=== PATIENT | male | born 1990 | race Caucasian/White ===

== ENCOUNTER 2023-05-07 11:47 | Outpatient (REF) | payer MEDICARE, MEDICAID, SELFPAY ==
[2023-05-12 16:33] LABS: C. trachomatis RNA TMA NOT DETECTED (NOT DETECTED); N. gonorrhoeae RNA TMA NOT DETECTED (NOT DETECTED)
== END 2023-05-07 11:48 | disposition home or self-care (01) ==
LOC: HO.LNP 11:47
PROVIDERS: Visit Provider Registered Nurse
DX: N48.1 Balanitis (principal)
CPT/HCPCS: 87481; 87491; 87591

== ENCOUNTER 2023-06-20 08:56 | Outpatient (AMB) | payer MEDICARE, MEDICAID, SELFPAY ==
--- NOTE | 2023-06-20 09:20 | A.OFFVIS_ITS ---
Intake Intake Visit Reasons: Balanitis Intake Note: New Patient presents for initial visit Balanitis Urology Medications: none Blood Thinner: none Bearing Ring Assembler Required: No Accompanied by: Self / Same As Patient Allergies No Known Allergies [No Known Allergies*] Allergy (Unverified 06/20/23 10:07) Medication List - Last Reconciled 06/20/23 by NASIMA Deras clotrimazole-betamethasone 1-0.05 % 1 appl topical BID 4 weeks empagliflozin (Jardiance) 10 mg PO DAILY metoprolol succinate ER 100 mg PO DAILY sacubitril-valsartan 24-26 mg (Entresto) 1 tab PO BID sacubitril-valsartan 49-51 mg (Entresto) 1 tab PO BID spironolactone 12.5 mg PO DAILY vitamin B complex 1 cap PO QAM HPI HPI Comments History of Present Illness Details Cy is a pleasant 33-year-old male patient of . He has a past medical history of alcohol abuse, heart failure, and hypertension. He presents to the office today as a new patient for balanitis. In discussion with the patient today he reports noting over the last 1-2 months having issues with the foreskin of his penis. In assessment of the patient today penile glans appears inflamed and erythematous. No drainage, open areas, and or foul smell noted. Discussed at length potential causes for balanitis. Patient otherwise denies any bothersome urinary issues at this time. He denies urinary urgency, urinary frequency, incontinence, nocturia, hematuria, dysuria, foul smelling urine, changes to urinary stream, flank pain, fever, and or chills. He is happy with his current voiding parameters. In office urinalysis results reviewed with the patient today. Patient discusses at length ongoing issues with house arrest. He becomes tearful discussing his girlfriend who has recently broke up with him due to this urological issue he is experiencing. He otherwise offers no other issues or concerns at this time. [facility] Medical History Low HDL (under 40) Tobacco abuse disorder Alcohol abuse Class 1 obesity Nonischemic cardiomyopathy Heart failure with reduced ejection fraction Review of Systems Const Reports as per HPI Eyes Reports no additional complaints ENT Reports no additional complaints Card Reports as per HPI Resp Reports no additional complaints GI Reports no additional complaints Reports as per HPI Musc Reports no additional complaints Neuro Reports no additional complaints Psych Reports no additional complaints Endo Reports no additional complaints Reinaldo/Lymph Reports no additional complaints Aller/Immun Reports no additional complaints Physical Exam Const General: cooperative, healthy appearing, comfortable, no acute distress, well developed, alert and awake Nutritional Appearance: overweight Orientation/consciousness: patient oriented x3 Limitations: no limitations HEENT Head: Yes normal to inspection, Yes normocephalic and Yes atraumatic Ears: hearing grossly normal bilaterally Eyes General: appearance normal, both eyes and all related structures Neck Neck: Yes normal visual inspection and Yes trachea midline Chest Chest palpation & inspection: normal inspection of the chest Resp Effort & Inspection: normal respiratory effort and able to speak in complete sen tences Cardio Rate: regular rate GI Inspection: Yes normal to inspection General: Yes no CVA tenderness Penis: uncircumcised and erythematous (penile gland; foreskin is retractable ) Meatus: meatus normal Scrotum: scrotum normal Testes: Testes normal Back/Spine/Pelvis Back: no CVA tenderness Skin General skin exam: no rashes or lesions noted Neuro General: patient oriented x3 Extrem General: Yes normal to inspection Psych Appearance: grossly normal and well kempt Mental Status: mental status grossly normal Speech and movement: Normal speech and movement present and Clear speech present Affect: normal affect Attitude: cooperative Thought process: Normal thought process present Thought content: Normal thought content present Insight: Fair insight present (Psych) Judgement: Fair judgement present (Psych) Results AMB Urinalysis, Automated UA Leukoctes 0 Aditya/uL Last Edit by YANA Alberto on 06/20/23 09:31 UA Nitrite Negative Last Edit by YANA Alberto on 06/20/23 09:31 UA Urobilinogen 0.2 mg/dL Last Edit by YANA Alberto on 06/20/23 09:3 1 UA Protein 0 mg/dL Last Edit by YANA Alberto on 06/20/23 09:31 UA pH 6.0 Last Edit by YANA Alberto on 06/20/23 09:31 UA Blood 0 Tevin/uL Last Edit by YANA Alberto on 06/20/23 09:31 UA Specific [place] 1.25 Last Edit by YANA Alberto on 06/20/23 09:3 1 UA Ketone Negative Last Edit by YANA Alberto on 06/20/23 09:31 UA Bilirubin 0 mg/dL Last Edit by YANA Alberto on 06/20/23 09:31 UA Glucose 1000 mg/dL Last Edit by YANA Alberto on 06/20/23 09:31 3+ Jonathon Estes 06/20/23 09:31 Results Reviewed Results Reviewed: Laboratory Last Values Urine pH (Auto) 6.0 06/20/23 09:25 Specific [place] (Auto) 1.25 06/20/23 09:25 Urine Protein (Auto) 0 mg/dL 06/20/23 09:25 Glucose (UA)(Auto) 1000 mg/dL 06/20/23 09:25 Urine Ketones (Auto) Negative 06/20/23 09:25 Urine Blood (Auto) 0 Tevin/uL 06/20/23 09:25 Urine Nitrite (Auto) Negative 06/20/23 09:25 Urine Bilirubin (Auto) 0 mg/dL 06/20/23 09:25 Urine Urobilinogen (Auto) 0.2 mg/dL 06/20/23 09:25 Leukocyte Esterase (Auto) 0 Aditya/uL 06/20/23 09:25 Assessment & Plan Assessment & Plan (1) Balanitis: Code(s): N48.1 - Balanitis Plan In office urinalysis results reviewed with the patient today. Discussed at length potential causes for balanitis. Patient denies any bothersome urinary issues at this time. Start clotrimazole-betamethasone as discussed and prescribed. Patient reports be happy with current voiding parameters. Follow-up in 1 month; or sooner with any issues, concerns, and or questions. Orders: Orders AMB Urinalysis Automated 06/20/23 N39.0 - Urinary tract infection, site not specified Medications: New clotrimazole-betamethasone 1-0.05 % Apply thin coat 2 times per day 1 appl topical BID 45 grams 0RF 4 weeks N48.1 - Balanitis Patient Instructions: The patient had an opportunity to ask questions regarding the treatment plan. All questions were answered. Physical exam, labs, and imaging were discussed and reviewed in detail. As well as risks, benefits, and discussion of treatment choices. No major barriers to understanding were identified. The patient expressed understanding and agreement with the above treatment plan. The patient was made aware they should contact our office by phone for worsening of their current condition, the appearance of new symptoms, or with any questions or concerns. Compliance is encouraged with any medications and follow up testing that is ordered. It is a privilege to be allowed the opportunity to participate in? your urological care.? Again, if you have any questions or concerns If you have any questions or concerns please do not hesitate to contact me. The office is [phone]. This note is constructed using voice recognition software. While every effort has been made to ensure accuracy stone layout marker errors may have been included. Yours sincerely, NASIMA Deras Coding Level of Care Code New Pt Level 4 (95289) Diagnoses Balanitis N48.1
== END 2023-06-20 10:16 | disposition home or self-care (01) ==
PROVIDERS: PCP Registered Nurse; Visit Provider Nurse Practitioner Family
DX: N48.1 Balanitis (principal)
CPT/HCPCS: 99204

== ENCOUNTER → 2023-06-20 08:56 | Outpatient (BNVA) | payer MEDICARE, MEDICAID, SELFPAY | PROVIDERS: PCP Registered Nurse; Visit Provider Nurse Practitioner Family | DX: N48.1 Balanitis (principal) | CPT/HCPCS: 81003; 99202 ==

== ENCOUNTER 2023-07-23 09:51 | Outpatient (AMB) | payer MEDICARE, MEDICAID, SELFPAY ==
--- NOTE | 2023-07-23 10:11 | MHC.OFFVIS ---
Intake Intake Visit Reasons: 1m follow up Intake Note: Patient presents for follow up visit Balanitis Urology Medications: clotrimazole-betamethasone Blood Thinner: none Aircraft Detail Draftsperson Required: No Accompanied by: Self / Same As Patient Allergies No Known Allergies [No Known Allergies*] Allergy (Unverified 07/23/23 10:45) Medication List - Last Reconciled 07/23/23 by CAROLYN Deras-VITALY clotrimazole-betamethasone 1-0.05 % 1 appl topical BID 4 weeks empagliflozin (Jardiance) 10 mg PO DAILY metoprolol succinate ER 100 mg PO DAILY sacubitril-valsartan 24-26 mg (Entresto) 1 tab PO BID sacubitril-valsartan 49-51 mg (Entresto) 1 tab PO BID spironolactone 12.5 mg PO DAILY vitamin B complex 1 cap PO QAM HPI HPI Comments History of Present Illness Details Cy is a pleasant 33-year-old male patient of Dr. Ramon. He has a past medical history of alcohol abuse, heart failure, and hypertension. He presents to the office today for follow-up. Of note, patient was seen approximately 1 month ago as a new patient for balanitis at which time he was prescribed clotrimazole-betamethasone. In discussion with the patient today he reports to be doing and feeling well. He reports significant improvement in symptoms he had been experiencing. He reports he has now been able to retract the foreskin of his penis and feels inflammation and irritation has since subsided. In assessment of the patient today foreskin of the penis was retractable and no abnormalities noted. No inflammation, redness, drainage, or foul-smelling odor. Discussed at length potential causes for balanitis. Patient otherwise denies any bothersome urinary issues at this time. He denies urinary urgency, urinary frequency, incontinence, nocturia, hematuria, dysuria, foul smelling urine, changes to urinary stream, flank pain, fever, and or chills. He is happy with his current voiding parameters. In office urinalysis results reviewed with the patient today. He discusses his upcoming motion for court in attempt to be able to do more out in the community. He otherwise offers no other issues or concerns at this time. [facility] Medical History Low HDL (under 40) Tobacco abuse disorder Alcohol abuse Class 1 obesity Nonischemic cardiomyopathy Heart failure with reduced ejection fraction Review of Systems Const Reports as per HPI Eyes Reports no additional complaints ENT Reports no additional complaints Card Reports as per HPI Resp Reports no additional complaints GI Reports no additional complaints Reports as per HPI Musc Reports no additional complaints Neuro Reports no additional complaints Psych Reports no additional complaints Endo Reports no additional complaints Reinaldo/Lymph Reports no additional complaints Aller/Immun Reports no additional complaints Physical Exam Const General: cooperative, healthy appearing, comfortable, no acute distress, well developed, alert and awake Nutritional Appearance: overweight Orientation/consciousness: patient oriented x3 Limitations: no limitations HEENT Head: Yes normal to inspection, Yes normocephalic and Yes atraumatic Ears: hearing grossly normal bilaterally Eyes General: appearance normal, both eyes and all related structures Neck Neck: Yes normal visual inspection and Yes trachea midline Chest Chest palpation & inspection: normal inspection of the chest Resp Effort & Inspection: normal respiratory effort and able to speak in complete sentences Cardio Rate: regular rate GI Inspection: Yes normal to inspection General: Yes no CVA tenderness Penis: normal penis and uncircumcised Meatus: meatus normal Scrotum: scrotum normal Testes: Testes normal Back/Spine/Pelvis Back: no CVA tenderness Skin General skin exam: no rashes or lesions noted Neuro General: patient oriented x3 Extrem General: Yes normal to inspection Psych Appearance: grossly normal and well kempt Mental Status: mental status grossly normal Speech and movement: Normal speech and movement present and Clear speech present Affect: normal affect Attitude: cooperative Thought process: Normal thought process present Thought content: Normal thought content present Insight: Fair insight present (Psych) Judgement: Fair judgement present (Psych) Results AMB Urinalysis, Automated UA Leukoctes 0 Aditya/uL Last Edit by Pedro Dickson on 07/23/23 10:28 UA Nitrite Negative Last Edit by Pedro Dickson on 07/23/23 10:28 UA Urobilinogen 0.2 mg/dL Last Edit by Pedro Dickson on 07/23/23 10:28 UA Protein 15 mg/dL Last Edit by Pedro Dickson on 07/23/23 10:28 UA pH 6.0 Last Edit by Pedro Dickson on 07/23/23 10:28 UA Blood 0 Tevin/uL Last Edit by Pedro Dickson on 07/23/23 10:28 UA Specific [place] 1.025 Last Edit by Pedro Dickson on 07/23/23 10:28 UA Ketone Negative Last Edit by Pedro Dickson on 07/23/23 10:28 UA Bilirubin 0 mg/dL Last Edit by Pedro Dickson on 07/23/23 10:28 UA Glucose 500 mg/dL Last Edit by Pedro Dickson on 07/23/23 10:28 Results Reviewed Results Reviewed: Laboratory Last Values Urine pH (Auto) 6.0 07/23/23 10:17 Specific [place] (Auto) 1.025 07/23/23 10:17 Urine Protein (Auto) 15 mg/dL 07/23/23 10:17 Glucose (UA)(Auto) 500 mg/dL 07/23/23 10:17 Urine Ketones (Auto) Negative 07/23/23 10:17 Urine Blood (Auto) 0 Tevin/uL 07/23/23 10:17 Urine Nitrite (Auto) Negative 07/23/23 10:17 Urine Bilirubin (Auto) 0 mg/dL 07/23/23 10:17 Urine Urobilinogen (Auto) 0.2 mg/dL 07/23/23 10:17 Leukocyte Esterase (Auto) 0 Aditya/uL 07/23/23 10:17 Assessment & Plan Assessment & Plan (1) Balanitis: Code(s): N48.1 - Balanitis Plan In office urinalysis results reviewed with the patient today; as noted above. Significant improvement in balanitis; no erythema or swelling noted. Foreskin is easily retractable. Patient denies any bothersome urinary issues or concerns at this time. He is happy with current voiding parameters. Reassurance provided. Follow-up as needed. Orders: Orders AMB Urinalysis Automated Today Z13.9 - Encounter for screening, unspecified Patient Instructions: The patient had an opportunity to ask questions regarding the treatment plan. All questions were answered. Physical exam, labs, and imaging were discussed and reviewed in detail. As well as risks, benefits, and discussion of treatment choices. No major barriers to understanding were identified. The patient expressed understanding and agreement with the above treatment plan. The patient was made aware they should contact our office by phone for worsening of their current condition, the appearance of new symptoms, or with any questions or concerns. Compliance is encouraged with any medications and follow up testing that is ordered. It is a privilege to be allowed the opportunity to participate in? your urological care.? Again, if you have any questions or concerns If you have any questions or concerns please do not hesitate to contact me. The office is [phone]. This note is constructed using voice recognition software. While every effort has been made to ensure accuracy procurement internship errors may have been included. Yours sincerely, NASIMA Deras Coding Level of Care Code Est Pt Level 3 (56119) Diagnoses Balanitis N48.1
== END 2023-07-23 10:44 | disposition home or self-care (01) ==
PROVIDERS: PCP Registered Nurse; Visit Provider Nurse Practitioner Family
DX: Z13.9 Encounter for screening, unspecified (principal); N48.1 Balanitis
CPT/HCPCS: 99213

== ENCOUNTER → 2023-07-23 09:51 | Outpatient (BNVA) | payer MEDICARE, MEDICAID, SELFPAY | PROVIDERS: PCP Registered Nurse; Visit Provider Nurse Practitioner Family | DX: N48.1 Balanitis (principal) | CPT/HCPCS: 81003; 99212 ==

== ENCOUNTER 2024-02-02 10:43 | Inpatient (IN) | payer MEDICARE, MEDICAID, SELFPAY ==
--- NOTE | ~2024-02-02 | XR_ITS ---
EXAMINATION: XR WRIST, LEFT CLINICAL INFORMATION: Left wrist abscess with question of foreign body COMPARISON: None available. TECHNIQUE: PA, lateral, and oblique views of the left wrist. FINDINGS: An ovoid soft tissue mass measuring about 2.6 cm is seen on the ventral surface of the left wrist. The bones and soft tissues are otherwise normal. No radiopaque foreign body. No fracture. Alignment is anatomic with normal joint spaces. No erosions or abnormal soft tissue calcifications. XR/XR wrist LT min 3V IMPRESSION: Soft tissue mass without radiopaque foreign body.
[2024-02-02 10:48] VITALS: BP 140/87; PULSE 95; RESP 18; TEMP 37.4; O2SAT 98; BMI 33.9
--- NOTE | 2024-02-02 12:39 | ED_ITS ---
HPI - General Adult General Chief complaint: Skin/Abscess/Foreign Body Stated complaint: growth on l wrist Time Seen by Provider: 02/02/24 12:39 Source: patient Mode of arrival: ambulatory Limitations: no limitations History of Present Illness HPI narrative: Patient is a 34-year-old right hand dominant male presenting to the emergency department with complaint of abscess to left anterior wrist for 6 days. States he initially thought this was a bug bite as it was mildly pruritic and small. Reports that over the past few days the area has increased in size and began draining clear liquid. He denies fever/chills/body aches. Denies history of MRSA. Denies IV drug use. MD complaint: Abscess Onset (ago): day(s) Location: left and upper extremity Severity: moderate Quality: aching Pain Consistency: colicky Relieving factors: rest Exacerbating factors: movement Associated symptoms: denies other symptoms Treatments prior to arrival: none Related Data Home Medications ?Medication ?Instructions ?Recorded ?Confirmed metoprolol succinate 100 mg 100 mg PO DAILY 06/17/23 07/23/23 tablet,extended release 24 hr sacubitril 49 mg-valsartan 51 mg 1 tab PO BID 06/17/23 07/23/23 tablet (Entresto) spironolactone 25 mg tablet 12.5 mg PO DAILY 06/17/23 07/23/23 vitamin B complex 1 cap PO QAM 06/17/23 07/23/23 empagliflozin 10 mg tablet 10 mg PO DAILY 06/20/23 07/23/23 (Jardiance) sacubitril 24 mg-valsartan 26 mg 1 tab PO BID 06/20/23 07/23/23 tablet (Entresto) Previous Rx's ?Medication ?Instructions ?Recorded clotrimazole-betamethasone 1 1 appl topical BID 4 weeks #45 06/20/23 %-0.05 % topical cream grams Allergies Allergy/AdvReac Type Severity Reaction Status Date / Time No Known Allergies Allergy Verified 02/02/24 10:49 [No Known Allergies*] Review of Systems 2 Review of Systems: As per HPI. Yes all other systems are reviewed and are negative Constitutional: Constitutional: Reports as per HPI [facility], [facility] Past Medical History Medical History Low HDL (under 40) Tobacco abuse disorder Alcohol abuse Class 1 obesity Nonischemic cardiomyopathy Heart failure with reduced ejection fraction Social History Social History Alcohol intake: current Smoked in Last 30 Days: No Substance Use Type: Marijuana Advance Directives: No Advance Directives Information Provided: Yes Do you have a plan to hurt others: No Plan Physical Exam ED Vital Signs: Vital Signs - 24 hr 02/02/24 10:48 02/02/24 13:04 02/02/24 14:22 Temperature 99.4 F 97.8 F 99.4 F Pulse Rate 95 88 89 Respiratory Rate 18 20 20 Blood Pressure 140/87 H 143/99 H 142/92 H Pulse Oximetry 98 97 97 Oxygen Delivery Method Room Air Room Air Room Air BMI result Body Mass Index 33.9 Vital signs have been reviewed and appear to be correct. Blood pressure elevated. Heart rate normal. Respiratory rate normal. Temperature normal. Oxygen saturation normal. Const General: cooperative, healthy appearing and no acute distress Orientation/consciousness: oriented to person, oriented to place, oriented to time and patient oriented x3 Limitations: no limitations HENMT Head: Yes normocephalic and Yes atraumatic Ears: external ears normal General nose exam: Normal external nose present Face and sinus: Yes face symmetric Mouth: oropharynx normal and moist mucous membranes Throat: Yes uvula midline Eyes Pupils: Equal, round and reactive pupils present Neck Neck: Yes normal visual inspection and Yes supple Resp Effort & Inspection: normal respiratory effort and able to speak in complete sentences Auscultation: clear to auscultation bilaterally Cardio Rate: regular rate Rhythm: regular rhythm Heart sounds: S1 normal heart sound present and S2 normal heart sound present Skin General skin exam: elasticity normal and turgor normal Neuro General: oriented to person, oriented to place, oriented to time, patient oriented x3, moves all extremities, no focal motor deficits and CN's II-XI intact bilaterally Cranial nerves: Yes Equal, round and reactive pupils present Cognition (Neuro): normal cognition Extrem Other: General: Yes full ROM, Yes no pedal edema and Yes no calf tenderness Left upper extremity: wrist forearm distal anterior Details: abnormal to inspection Details: erythema (abscess 3cm diameter), tenderness Location: of the distal ulna, normal ROM, warmth Location: of the volar wrist and normal vascular exam Psych Mental Status: mental status grossly normal Affect: normal affect Thought process: Normal thought process present Medical Decision Making Medical Decision Making [facility] Narrative: Patient is a 34-year-old right hand dominant male presenting to the emergency department with complaint of abscess to left anterior wrist for 6 days. On exam patient is awake, A+Ox3, VS WNL, afebrile, normal neurological exam without focal deficits, physical exam findings as above. Given reported symptoms and physical exam findings, initial differential includes abscess, cellulitis. Do not suspect septic joint as patient has full ROM, is afebrile. No leukocytosis on labs. Case discussed with Thomas from [facility] who discussed case with Dr. Mustafa. They are requesting admission to medicine, hold antibiotics at this time, NPO after midnight and pt to go to OR tomorrow for I&D. Patient accepted for admission to medicine by Dr. Coats. Differential Diagnosis Differential Diagnoses: The differential diagnosis associated with the presentation includes as per [facility] Admission/Observation Consideration of admission/observation: Escalation of care including admission/observation considered Consult Healthcare Provider Management of the patient was discussed with: Hospitalist and Straddle Buggy Operator (Erick Davies, Dr. Mustafa, [facility]) Lab Data [facility] Lab Attestation statement: I reviewed the patient's lab results. As per [facility] 02/02/24 14:44 02/02/24 14:44 Labs: Lab Results 02/02/24 Range/Units 14:44 WBC 9.4 (4.8-10.8) X10*3/uL RBC 5.11 (4.60-5.80) X10*6/uL Hgb 15.4 (14.0-18.0) g/dl Hct 43.4 (42.0-52.0) % MCV 84.9 (80.0-98.0) fL MCH 30.1 (27.0-33.0) pg MCHC 35.5 (31.0-36.0) g/dl RDW 13.1 (11.0-16.0) % Plt Count 243 (160-400) X10*3/uL MPV 8.7 L (9.4-12.4) fL Sodium 140 (135-145) mmol/L Potassium 3.6 (3.3-5.1) mmol/L Chloride 107 (96-108) mmol/L Carbon Dioxide 23 (22-29) mmol/L Anion Gap 14 (12-20) BUN 9 (9-16) mg/dL Creatinine 0.78 (0.5-1.4) mg/dL Estim Creat Clear Calc 170.2 Estimated GFR > 60 Random Glucose 96 (60-115) mg/dL Calcium 9.6 (8.4-10.2) mg/dL External Record Review External record reviewed: Inpatient record, Office record and Outpatient record Prescription Management I considered prescription management with: Antibiotic Discharge Plan Discharge Prescriptions: No Action metoprolol succinate 100 mg tablet extended release 24 hr 100 mg PO DAILY spironolactone 25 mg tablet 12.5 mg PO DAILY vitamin B complex Capsule 1 cap PO QAM Entresto 49-51 mg tablet 1 tab PO BID Jardiance 10 mg tablet 10 mg PO DAILY Entresto 24-26 mg tablet 1 tab PO BID clotrimazole-betamethasone 1-0.05 % cream 1 appl topical BID 28 Days Qty: 45 0RF Rx Instructions: Apply thin coat 2 times per day Print Language: Setswana
[2024-02-02 13:04] VITALS: BP 143/99; PULSE 88; RESP 20; TEMP 36.6; O2SAT 97
[2024-02-02 14:22] VITALS: BP 142/92; PULSE 89; RESP 20; TEMP 37.4; O2SAT 97
[2024-02-02 14:56] LABS: Basophils Absolute Auto 0.1 X10*3/uL (0.0-0.2); Basophils Percent Auto 1.2 % (0-2); Eosinophils Percent Auto 0.4 % (0-4); Hematocrit 43.4 % (42.0-52.0); Hemoglobin 15.4 g/dl (14.0-18.0); Imm Gran Abs Auto 0.03 X10*3/uL (0.00-0.03); Imm Gran Pct Auto 0.3 % (0.0-0.4); Lymphocytes Percent Auto 64.6 % (20-40); MANUAL DIFF FLAG SCAN; Mean Corpuscular HGB Conc 35.5 g/dl (31.0-36.0); Mean Corpuscular Hemoglobin 30.1 pg (27.0-33.0); Mean Corpuscular Volume 84.9 fL (80.0-98.0); Mean Platelet Volume 8.7 fL (9.4-12.4); Monocytes Absolute Auto 0.6 X10*3/uL (0.1-1.2); Neutrophils Absolute Auto 2.6 x10*3/uL (2.0-8.3); Neutrophils Percent Auto 27.5 % (45-73); Platelet Count 243 X10*3/uL (160-400); Red Blood Count 5.11 X10*6/uL (4.60-5.80); Red Cell Distribution Width 13.1 % (11.0-16.0); SCAN SMEAR FLAG 1; White Blood Count 9.4 X10*3/uL (4.8-10.8)
[2024-02-02 14:58] LABS: Lymphocytes Absolute Auto 6.1 X10*3/uL (1.2-4.9)
[2024-02-02 15:10] LABS: Anion Gap 14 (12-20); Blood Urea Nitrogen 9 mg/dL (9-16); Calcium 9.6 mg/dL (8.4-10.2); Carbon Dioxide 23 mmol/L (22-29); Chloride 107 mmol/L (96-108); Creatinine Clr Calc Pharmacy 170.2; Estimated Glomerular Filt Rate > 60; Glucose Random 96 mg/dL (60-115); Potassium 3.6 mmol/L (3.3-5.1); Sodium 140 mmol/L (135-145)
[2024-02-02] MEDS: oxyCODONE HCl Immed Release 5 MG TABLET 10 MG PO ×2 (15:13→19:16)
--- NOTE | 2024-02-02 15:42 | PM.IMHP ---
History of Present Illness Date of Service: 02/02/24 Chief Complaint: Abscess left wrist Patient is a 34-year-old right hand dominant male presenting to the emergency department with complaint of abscess to left anterior wrist for 6 days. States he initially thought this was a bug bite as it was mildly pruritic and small. Reports that over the past few days the area has increased in size and began draining clear liquid. He denies fever/chills/body aches. Denies history of MRSA. Denies IV drug use. ER discussed with ortho; requested medical admission IV antibiotics and likely I&D in a.m. Review of Systems Review of Systems: Denies chest pain Denies shortness of breath Denies nausea vomiting diarrhea Denies fever chills PMFSH Medical History (Updated 02/02/24 @ 15:45 by Jose Coats DO) Low HDL (under 40) Tobacco abuse disorder Alcohol abuse Class 1 obesity Nonischemic cardiomyopathy Heart failure with reduced ejection fraction Social History Alcohol intake: current Smoked in Last 30 Days: No Substance Use Type: Marijuana Advance Directives: No Advance Directives Information Provided: Yes Do you have a plan to hurt others: No Plan Meds Allergies Allergy/AdvReac Type Severity Reaction Status Date / Time No Known Allergies Allergy Verified 02/02/24 10:49 [No Known Allergies*] Active Medications: Current Medications Enoxaparin Sodium (Enoxaparin Sodium 40 Mg/0.4 Ml Syringe) 40 mg SUBCUT Q24H TONA Vancomycin HCl (Vancomycin/Ns) 2,000 mg in 500 mls @ 250 mls/hr IV ONCE ONE Stop: 02/02/24 17:03 Piperacillin Sod/Tazobactam (Sod 4.5 gm/ Sodium Chloride) 100 mls @ 200 mls/hr IV Q6H T[facility] Morphine Sulfate (Morphine Sulfate 4 Mg/Ml Cartridge) 4 mg IVPUSH Q4H PRN; Protocol PRN Reason: Pain, Moderate(Pain Scale 4-6) Oxycodone HCl (Oxycodone Hcl Immed Release 5 Mg Tablet) 10 mg PO Q4H PRN PRN Reason: Pain, Moderate(Pain Scale 4-6) Last Admin: 02/02/24 15:13 Dose: 10 mg Pharmacy Consult (Consult Rx Vancomycin Dosing) 1 each MISCELLANE DAILY PRN PRN Reason: Consult order Sodium Chloride (0.9 % Sodium Chloride Flush 3 Ml Syringe) 3 ml IVFLUSH QSHIFT [facility] Home Medications ?Medication ?Instructions ?Recorded ?Confirmed ?Last Taken ?Type metoprolol succinate 100 mg 100 mg PO DAILY 06/17/23 07/23/23 Unknown History tablet,extended release 24 hr sacubitril 49 mg-valsartan 51 mg 1 tab PO BID 06/17/23 07/23/23 Unknown History tablet (Entresto) spironolactone 25 mg tablet 12.5 mg PO DAILY 06/17/23 07/23/23 Unknown History vitamin B complex 1 cap PO QAM 06/17/23 07/23/23 Unknown History dapagliflozin propanediol 10 mg 10 mg PO DAILY 02/02/24 02/02/24 Unknown History tablet (Farxiga) metoprolol succinate 200 mg 200 mg PO DAILY 02/02/24 02/02/24 Unknown History tablet,extended release 24 hr sacubitril 97 mg-valsartan 103 mg 1 tab PO BID 02/02/24 02/02/24 Unknown History tablet (Entresto) Physical Exam Vital Signs and Narrative: Vital Signs: Last Vital Signs Temp 99.4 F 02/02/24 14:22 Pulse 89 02/02/24 14:22 Resp 20 02/02/24 14:22 BP 142/92 H 02/02/24 14:22 Pulse Ox 97 02/02/24 14:22 O2 Del Method Room Air 02/02/24 14:22 BMI result Body Mass Index 33.9 Const: Other: Awake alert oriented x3 no acute distress Resp: Other: Clear to auscultation bilaterally no rales rhonchi or wheezes Cardio: Other: No S4; positive S1-S2; no S3 murmurs rubs or gallops GI: Other: Soft nontender nondistended normoactive bowel sounds Extrem: Other: Left wrist with proximally 3-4 cm raised firm mass Results Labs 02/02/24 14:44 02/02/24 14:44 Labs: Laboratory Results - last 24 hr 02/02/24 14:44 MCV 84.9 MCH 30.1 MCHC 35.5 RDW 13.1 Plt Count 243 MPV 8.7 L Anion Gap 14 Estim Creat Clear Calc 170.2 Estimated GFR > 60 Random Glucose 96 Calcium 9.6 Assessment and Plan (1) Abscess of wrist: Status: Acute (2) Nonischemic cardiomyopathy: Status: Acute (3) Heart failure with reduced ejection fraction: Status: Acute Plan 34-year-old male with abscess to left wrist that has worsened over the last several days with clear drainage. Denies fever chills 1.Left wrist abscess -vancomycin/Zosyn (1) -blood cultures x2 drawn -orthopedic consult 2.Nonischemic cardiomyopathy/heart failure with reduced ejection fraction -stable and well compensated -continue outpatient therapies Full code Suex Requires at least 2 midnights of inpatient stay for IV antibiotics to treat abscess of left wrist and surgical consult for possible drainage. This can not be achieved a lesser acute setting Quality Stroke Does the patient have a stroke diagnosis?: No VTE Prior VTE?: No VTE Risk Level:: Medical - moderate - high VTE Device Contraindication: Treatment Not Indicated VTE Drug Contraindication: N/A - Med Ordered
[2024-02-02] MEDS: vancomycin/NS 2,000 MG/500 ML PLAST..BAG 250 MG IV (15:43)
[2024-02-02 16:00] LABS: SLIDE REVIEW VERIFIED
--- NOTE | 2024-02-02 16:29 | PHA.MEDREC ---
Pharmacy Consult ? Medication Reconciliation Pharmacy has completed the medication reconciliation. patient reported medication. patient had metoprolol and vitamin b comlex rx bottles. Cris Gross, PharmD
[2024-02-02 16:37] VITALS: BP 144/96; PULSE 88; RESP 20; TEMP 36.9; O2SAT 95
[2024-02-02] MEDS: Piperacillin Sodium/Tazobactam 4.5 GM in 0.9 % Sodium Chloride 100 ML IV ×2 (18:27→23:55)
[2024-02-02 18:56] VITALS: BMI 35.4
[2024-02-02 19:12] VITALS: BP 162/94; PULSE 75; RESP 20; TEMP 36.2; O2SAT 97
[2024-02-02] MEDS: Enoxaparin Sodium 40 MG/0.4 ML SYRINGE SUBCUT (19:16)
[2024-02-02 20:29] VITALS: BP 141/95
[2024-02-02] MEDS: Sacubitril/Valsartan 97/103 1 TAB TABLET PO (20:29)
--- NOTE | 2024-02-02 20:47 | PHA.PROG ---
Admission Date/Time: February 02, 2024 15:10 Indication: Abcess Weight in k.5 kg Adjusted body weight in K.96 [place] body weight in K.6 Obesity Dosing Indication % IBW:152% Serum Creatinine - Last 168 Hours 02/02/24 14:44 Creatinine 0.78 Estimated CrCl and GFR - Last 168 Hours 02/02/24 14:44 Estim Creat Clear Calc 170.2 Estimated GFR > 60 Vancomycin Loading Dose: 2000 mg Current Vancomycin Dosing Regimen: 1500 mg Q12H Date and Time for next Vancomycin Level to be drawn: 02/02 @ 1400 Pharmacist Comments on Vancomycin Plan: patient received an adequate load dose in the ER 02/01 @ 1543. maintenance dose vancomycin 1500 mg Q12H is scheduled to start 02/02 @ 0400. Predicted AUC is 550 with a trough of 17.4 trough will be drawn prior to 3rd dose to be access for in-house pharmacy patient is obese with %IBW > 130% therefore careful monitor is required due to vancomycin's high volume of distribution pharmacy will monitor renal function daily Cris Gross PharmD Vancomycin dosing will take advantage of [employer] as a clinical decision support tool that uses Bayesian modeling to calculate individual patient's pharmacokinetic parameters and forecast the patient's drug concentration time course with the target goal AUC 24 range of 400 - 600 mg/L/hr.
[2024-02-02] MEDS: 0.9 % Sodium Chloride Flush 3 ML SYRINGE IVFLUSH (23:54)
[2024-02-03] VITALS (13 sets, daily range): BP systolic 128–160; BP diastolic 71–98; PULSE 79–107; RESP 14–19; TEMP 36.1–36.6; O2SAT 96–100
[2024-02-03] MEDS: Acetaminophen 325 MG TABLET 650 MG PO ×2 (00:15→08:21)
[2024-02-03] MEDS: ondansetron HCL 4 MG/2 ML VIAL IVPUSH ×2 (00:16→21:42)
[2024-02-03] MEDS: vancomycin HCL 1,500 MG in 0.9 % Sodium Chloride 500 ML 333.33 MG IV (03:19)
[2024-02-03] MEDS: Piperacillin Sodium/Tazobactam 4.5 GM in 0.9 % Sodium Chloride 100 ML IV ×3 (04:51→23:06)
[2024-02-03 05:34] LABS: Basophils Absolute Auto 0.1 X10*3/uL (0.0-0.2); Basophils Percent Auto 1.1 % (0-2); Eosinophils Percent Auto 0.5 % (0-4); Hematocrit 40.7 % (42.0-52.0); Hemoglobin 14.2 g/dl (14.0-18.0); Imm Gran Abs Auto 0.03 X10*3/uL (0.00-0.03); Imm Gran Pct Auto 0.4 % (0.0-0.4); Lymphocytes Absolute Auto 5.3 X10*3/uL (1.2-4.9); MANUAL DIFF FLAG SCAN; Mean Corpuscular HGB Conc 34.9 g/dl (31.0-36.0); Mean Corpuscular Hemoglobin 29.6 pg (27.0-33.0); Mean Corpuscular Volume 84.8 fL (80.0-98.0); Mean Platelet Volume 8.7 fL (9.4-12.4); Monocytes Absolute Auto 0.5 X10*3/uL (0.1-1.2); Monocytes Percent Auto 6.3 % (2-11); Neutrophils Absolute Auto 2.2 x10*3/uL (2.0-8.3); Neutrophils Percent Auto 26.7 % (45-73); Platelet Count 221 X10*3/uL (160-400); Red Cell Distribution Width 13.2 % (11.0-16.0); SCAN SMEAR FLAG 1; White Blood Count 8.2 X10*3/uL (4.8-10.8)
[2024-02-03 05:57] LABS: SLIDE REVIEW VERIFIED
[2024-02-03 06:16] LABS: Alanine Aminotransferase 47 U/L (0-40); Albumin Level 3.4 g/dL (3.5-5.0); Alkaline Phosphatase 104 U/L (39-117); Anion Gap 12 (12-20); Aspartate Amino Transferase 34 U/L (5-37); Bilirubin Total 0.7 mg/dL (0.0-1.0); Blood Urea Nitrogen 8 mg/dL (9-16); Calcium 8.4 mg/dL (8.4-10.2); Carbon Dioxide 22 mmol/L (22-29); Chloride 107 mmol/L (96-108); Creatinine Clr Calc Pharmacy 188.5; Estimated Glomerular Filt Rate > 60; Glucose Fasting 108 mg/dL (60-99); Potassium 3.4 mmol/L (3.3-5.1); Sodium 138 mmol/L (135-145); Total Protein 7.3 g/dL (6.5-8.0)
[2024-02-03] MEDS: Sacubitril/Valsartan 97/103 1 TAB TABLET PO ×2 (08:21→20:25)
[2024-02-03] MEDS: Spironolactone 25 MG TABLET 12.5 MG PO (08:21)
[2024-02-03] MEDS: Metoprolol Succinate ER 100 MG TAB.ER.24H 200 MG PO (08:22)
[2024-02-03] MEDS: 0.9 % Sodium Chloride Flush 3 ML SYRINGE IVFLUSH ×2 (08:23→20:29)
--- NOTE | 2024-02-03 09:37 | PM.EVENT ---
Event Note Date of Service: 02/03/24 Event Note: left wrist abscess -keep npo for OR today consult note to follow Time Spent With Patient Time: Total time managing care of this patient today ____ minutes.
[2024-02-03] MEDS: Dextrose 5 % and 0.9 % NaCl 1,000 ML 80 ML IVCONT (09:44)
--- NOTE | 2024-02-03 10:57 | PM.CNOR ---
History of Present Illness HPI Consult date: 02/03/24 <Thomas Bernabe PA-C - Last Filed: 02/03/24 11:03> Chief complaint: abcess <Thomas Bernabe PA-C - Last Filed: 02/03/24 11:03> Narrative: 34 yo male admitted to the medical service with left wrist abscess, started on IV abx. He states about 1 week ago he noticed a bump on the wrist and it was itchy. He was scratching and noticed the bump becoming red and swollen. He thinks it may have been a spider bite, as he did recall seeing one on his sweatshirt. He denies IVDU. Denies recent illness. States there was some drainage from the area. No other treatment to date. He states he was dx with CHF in 2021/2022. H/o alcohol use . Quit smoking. <Thomas Bernabe PA-C - Last Filed: 02/03/24 11:03> Review of Systems Review of Systems: Yes all other systems are reviewed and are negative <Thomas Bernabe PA-C - Last Filed: 02/03/24 11:03> PMFSH Past Medical History Medical History: Medical History (Updated 02/03/24 @ 11:01 by Thomas Bernabe PA-C) Low HDL (under 40) Tobacco abuse disorder Alcohol abuse Class 1 obesity Nonischemic cardiomyopathy Heart failure with reduced ejection fraction <Thomas Bernabe PA-C - Last Filed: 02/03/24 11:03> Surgical History Surgical History: Surgical History (Updated 02/03/24 @ 14:17 by Adrianna Holt RN) [place] teeth extracted <Thomas Bernabe PA-C - Last Filed: 02/03/24 11:03> Social History Social History: Social History Household Members: Friend(s) Housing: Apartment Do you presently have visiting nurse or other home services: No Alcohol intake: current Alcohol intake frequency: holidays/special occasions only Patient Tobacco Use Status: Never used Tobacco Substance Use Type: Marijuana service: No <Thomas Bernabe PA-C - Last Filed: 02/03/24 11:03> Meds Allergies/Adverse reactions: Allergies Allergy/AdvReac Type Severity Reaction Status Date / Time No Known Allergies Allergy Verified 02/02/24 10:49 [No Known Allergies*] <Thomas Bernabe PA-C - Last Filed: 02/03/24 11:03> Active Medications: Current Medications Acetaminophen (Acetaminophen 325 Mg Tablet) 650 mg PO Q4H PRN PRN Reason: Pain, Mild (Pain Scale 1-3) Last Admin: 02/03/24 08:21 Dose: 650 mg Enoxaparin Sodium (Enoxaparin Sodium 40 Mg/0.4 Ml Syringe) 40 mg SUBCUT Q24H [facility] Last Admin: 02/02/24 19:16 Dose: 40 mg Vancomycin HCl 1,500 mg/ (Sodium Chloride) 500 mls @ 333.333 mls/hr IV Q12H [facility] Last Infusion: 02/03/24 04:53 Dose: Infused Piperacillin Sod/Tazobactam (Sod 4.5 gm/ Sodium Chloride) 100 mls @ 200 mls/hr IV Q6H [facility] Last Infusion: 02/03/24 05:26 Dose: Infused Dextrose/Sodium Chloride (D5ns) 1,000 mls @ 80 mls/hr IVCONT .[id number] [facility] Last Admin: 02/03/24 09:44 Dose: 80 mls/hr Metoprolol Succinate (Metoprolol Succinate Er 100 Mg Tab.Er.24h) 200 mg PO DAILY [facility]; Protocol Last Admin: 02/03/24 08:22 Dose: 200 mg Morphine Sulfate (Morphine Sulfate 4 Mg/Ml Cartridge) 4 mg IVPUSH Q4H PRN; Protocol PRN Reason: Pain, Moderate(Pain Scale 4-6) Ondansetron HCl (Ondansetron Hcl 4 Mg/2 Ml Vial) 4 mg IVPUSH Q6H PRN PRN Reason: Nausea and Vomiting Last Admin: 02/03/24 00:16 Dose: 4 mg Oxycodone HCl (Oxycodone Hcl Immed Release 5 Mg Tablet) 10 mg PO Q4H PRN PRN Reason: Pain, Moderate(Pain Scale 4-6) Last Admin: 02/02/24 19:16 Dose: 10 mg Pharmacy Consult (Consult Rx Vancomycin Dosing) 1 each MISCELLANE DAILY PRN PRN Reason: Consult order Sacubitril/Valsartan (Sacubitril/Valsartan 97/103 1 Tab Tablet) 1 tab PO BID [facility]; Protocol Last Admin: 02/03/24 08:21 Dose: 1 tab Sodium Chloride (0.9 % Sodium Chloride Flush 3 Ml Syringe) 3 ml IVFLUSH QSHIFT [facility] Last Admin: 02/03/24 08:23 Dose: 3 ml Spironolactone (Spironolactone 25 Mg Tablet) 12.5 mg PO DAILY [facility]; Protocol Last Admin: 02/03/24 08:21 Dose: 12.5 mg <Thomas Bernabe PA-C - Last Filed: 02/03/24 11:03> Home medications: Home Medications ?Medication ?Instructions ?Recorded ?Confirmed ?Last Taken ?Type spironolactone 25 mg tablet 12.5 mg PO DAILY 06/17/23 02/02/24 02/02/24 History vitamin B complex 1 cap PO QAM 06/17/23 02/02/24 02/02/24 History dapagliflozin propanediol 10 mg 10 mg PO DAILY 02/02/24 02/02/24 02/02/24 History tablet (Farxiga) metoprolol succinate 200 mg 200 mg PO DAILY 02/02/24 02/02/24 02/02/24 History tablet,extended release 24 hr sacubitril 97 mg-valsartan 103 mg 1 tab PO BID 02/02/24 02/02/24 02/02/24 History tablet (Entresto) <Thomas Bernabe PA-C - Last Filed: 02/03/24 11:03> Physical Exam Vital Signs: Vital Signs: Last Vital Signs Temp 96.9 F 02/03/24 07:42 Pulse 79 02/03/24 08:22 Resp 18 02/03/24 07:42 BP 149/98 H 02/03/24 08:22 Pulse Ox 98 02/03/24 07:42 O2 Del Method Room Air 02/03/24 07:42 BMI result Body Mass Index 35.4 <Thomas Bernabe PA-C - Last Filed: 02/03/24 11:03> Const: General: cooperative, healthy appearing, comfortable and no acute distress <Thomas Bernabe PA-C - Last Filed: 02/03/24 11:03> Extrem: Other: left wrist abscess over the dorsal/ulnar aspect of the wrist. There is some fluctulance to the area. No active drainage. There appears to be 2 puncture areas over the abscess. He is able to range the wrist , he can make a fist and extend all digits without issues. NVI. <CORBY Christy Last Filed: 02/03/24 11:03> Results Labs Result Diagrams: 02/03/24 05:16 02/03/24 05:16 <CORBY Christy Last Filed: 02/03/24 11:03> Labs: Abnormal lab results 02/02/24 02/03/24 Range/Units 14:44 05:16 Hct 40.7 L (42.0-52.0) % MPV 8.7 L 8.7 L (9.4-12.4) fL Neut % (Auto) 27.5 L 26.7 L (45-73) % Lymph % (Auto) 64.6 H 65.0 H (20-40) % Lymph # (Auto) 6.1 H 5.3 H (1.2-4.9) X10*3/uL BUN 8 L (9-16) mg/dL Fasting Glucose 108 H (60-99) mg/dL ALT 47 H (0-40) U/L Albumin 3.4 L (3.5-5.0) g/dL H & H 02/02/24 02/03/24 Range/Units 14:44 05:16 Hgb 15.4 14.2 (14.0-18.0) g/dl Hct 43.4 40.7 L (42.0-52.0) % All other labs normal. <CORBY Christy Last Filed: 02/03/24 11:03> Assessment and Plan (1) Abscess of skin of left wrist: Status: Acute <CORBY Christy Last Filed: 02/03/24 11:03> I discussed the case with Dr Vallejo and explained the extent of the condition to the patient and options available which include surgical intervention. I explained the procedure in detail along with the length of recovery which may include po vs IV abx. I explained the risk, benefits and alternatives. Risk including, but not limited to ongoing infection, blood clots, bleeding, need for more surgery and nerve/tissue damage to surrounding areas. I answered all their questions and with their understanding they have consented to move forward with irrigation and debridement left wrist with dr vallejo. <Thomas Bernabe PA-C - Last Filed: 02/03/24 11:03> I discussed the case with Dr Vallejo and explained the extent of the condition to the patient and options available which include surgical intervention. I explained the procedure in detail along with the length of recovery which may include po vs IV abx. I explained the risk, benefits and alternatives. Risk including, but not limited to ongoing infection, blood clots, bleeding, need for more surgery and nerve/tissue damage to surrounding areas. I answered all their questions and with their understanding they have consented to move forward with irrigation and debridement left wrist with dr vallejo. Dr. Vallejo addendum: Please see my additional consult note from today for additional information. <Nena Vallejo MD - Last Filed: 02/03/24 18:21> Procedures Date of Service Date of Service: 02/03/24 <Thomas Bernabe PA-C - Last Filed: 02/03/24 11:03> 02/03/24 <Nena Vallejo MD - Last Filed: 02/03/24 18:21>
--- NOTE | 2024-02-03 11:24 | P.PNIM_ITS ---
Subjective Subjective Date of Service: 02/03/24 Interval History: Being followed for left wrist abscess, patient feels hungry, is NPO scheduled for I&D this afternoon by Orthopedic surgery, denies fever, no chills, no headache, no dizziness, no other acute issues overnight. Review of Systems All other system reviewed and negative. Physical Exam 2 Vital Signs: Vital Signs: Last Vital Signs Temp 96.9 F 02/03/24 07:42 Pulse 79 02/03/24 08:22 Resp 18 02/03/24 07:42 BP 149/98 H 02/03/24 08:22 Pulse Ox 98 02/03/24 07:42 O2 Del Method Room Air 02/03/24 07:42 BMI result Body Mass Index 35.4 Const: Other: General awake alert x3, in no acute distress. Neck supple no JVD. CVS regular rate rhythm, Respiratory lungs clear to auscultation, no respiratory distress, no wheeze, no rhonchi. Gastrointestinal abdomen soft, nontender, bowel sounds audible, no guarding , no rigidity. Extremities left forearm abscess, with fluctuation, no drainage good range of motion left breast Neuro non focal Skin no rash, warm and dry Psych appropriate affect Objective Data Active Medications Acetaminophen (Acetaminophen 325 Mg Tablet) 650 mg PO Q4H PRN PRN Reason: Pain, Mild (Pain Scale 1-3) Last Admin: 02/03/24 08:21 Dose: 650 mg Documented By: RADHA Enoxaparin Sodium (Enoxaparin Sodium 40 Mg/0.4 Ml Syringe) 40 mg SUBCUT Q24H [facility] Last Admin: 02/02/24 19:16 Dose: 40 mg Documented By: KVNG Vancomycin HCl 1,500 mg/ (Sodium Chloride) 500 mls @ 333.333 mls/hr IV Q12H [facility] Last Infusion: 02/03/24 04:53 Dose: Infused Documented By: HOLLEY Piperacillin Sod/Tazobactam (Sod 4.5 gm/ Sodium Chloride) 100 mls @ 200 mls/hr IV Q6H [facility] Last Infusion: 02/03/24 05:26 Dose: Infused Documented By: HOLLEY Dextrose/Sodium Chloride (D5ns) 1,000 mls @ 80 mls/hr IVCONT .[id number] [facility] Last Admin: 02/03/24 09:44 Dose: 80 mls/hr Documented By: RADHA Metoprolol Succinate (Metoprolol Succinate Er 100 Mg Tab.Er.24h) 200 mg PO DAILY [facility]; Protocol Last Admin: 02/03/24 08:22 Dose: 200 mg Documented By: RADHA Morphine Sulfate (Morphine Sulfate 4 Mg/Ml Cartridge) 4 mg IVPUSH Q4H PRN; Protocol PRN Reason: Pain, Moderate(Pain Scale 4-6) Ondansetron HCl (Ondansetron Hcl 4 Mg/2 Ml Vial) 4 mg IVPUSH Q6H PRN PRN Reason: Nausea and Vomiting Last Admin: 02/03/24 00:16 Dose: 4 mg Documented By: ANTOIC Oxycodone HCl (Oxycodone Hcl Immed Release 5 Mg Tablet) 10 mg PO Q4H PRN PRN Reason: Pain, Moderate(Pain Scale 4-6) Last Admin: 02/02/24 19:16 Dose: 10 mg Documented By: KVNG Pharmacy Consult (Consult Rx Vancomycin Dosing) 1 each MISCELLANE DAILY PRN PRN Reason: Consult order Sacubitril/Valsartan (Sacubitril/Valsartan 97/103 1 Tab Tablet) 1 tab PO BID [facility]; Protocol Last Admin: 02/03/24 08:21 Dose: 1 tab Documented By: RADHA Sodium Chloride (0.9 % Sodium Chloride Flush 3 Ml Syringe) 3 ml IVFLUSH QSHIFT [facility] Last Admin: 02/03/24 08:23 Dose: 3 ml Documented By: RADHA Spironolactone (Spironolactone 25 Mg Tablet) 12.5 mg PO DAILY [facility]; Protocol Last Admin: 02/03/24 08:21 Dose: 12.5 mg Documented By: RADHA Labs 02/03/24 05:16 02/03/24 05:16 Labs: Laboratory Results - last 24 hr 02/02/24 02/03/24 14:44 05:16 MCV 84.9 84.8 MCH 30.1 29.6 MCHC 35.5 34.9 RDW 13.1 13.2 Plt Count 243 221 MPV 8.7 L 8.7 L Immature Gran % (Auto) 0.3 0.4 Neut % (Auto) 27.5 L 26.7 L Lymph % (Auto) 64.6 H 65.0 H Page % (Auto) 6.0 6.3 Eos % (Auto) 0.4 0.5 Baso % (Auto) 1.2 1.1 Lymph # (Auto) 6.1 H 5.3 H Page # (Auto) 0.6 0.5 Eos # (Auto) 0.0 0.0 Baso # (Auto) 0.1 0.1 Abs Immat Gran (auto) 0.03 0.03 Absolute Neuts (auto) 2.6 2.2 Absolute Nucleated RBC 0.000 0.000 Nucleated RBC % (auto) 0.0 0.0 Smear Tech's Comments VERIFIED VERIFIED Anion Gap 14 12 Estim Creat Clear Calc 170.2 188.5 Estimated GFR > 60 > 60 Random Glucose 96 Fasting Glucose 108 H Calcium 9.6 8.4 D Total Bilirubin 0.7 AST 34 ALT 47 H Alkaline Phosphatase 104 Total Protein 7.3 Albumin 3.4 L Assessment and Plan (1) Abscess of skin of left wrist: Status: Acute Plan 34-year-old male with abscess to left wrist that has worsened over the last several days with clear drainage. Denies fever chills 1.Left wrist abscess -afebrile, normal WBC count, continue IV vancomycin/Zosyn day 2 -blood cultures x2 pending -seen by Orthopedic surgery and scheduled for I and D this afternoon , continue NPO placed on IV fluid 2.Nonischemic cardiomyopathy/heart failure with reduced ejection fraction -stable and well compensated -continue outpatient therapies 3. Type 2 diabetes mellitus, will hold oral hypoglycemic Farxiga 10 mg, since patient NPO follow point of care blood sugar q.6 hours. Full code Lovenox Requires continued inpatient stay for IV antibiotics to treat abscess of left wrist and drainage by Orthopedic surgery. This can not be achieved a lesser acute setting. Quality Stroke Does the patient have a stroke diagnosis?: No VTE Prior VTE?: No VTE Risk Level:: Medical - moderate - high VTE Device Contraindication: Treatment Not Indicated VTE Drug Contraindication: N/A - Med Ordered
--- NOTE | 2024-02-03 12:12 | HO.WOUND ---
Wound Consult: Initial 34yr old?M admitted to [facility] [place] - See progress notes and H&P for detailed history.? Wound consult placed for Left Wrist abscess site plan for OR for I&D with general surgery today per direct care nurse.? Patient agreeable to assessment and photo documentation.? Left Wrist Etiology: ??Abscess site Wound Bed: increasing in size taunt fluctuant fluid filled pocket Drainage / Odor: crusted at pin point opening Edges: ? attached Estella wound: red pink erythema Pain: pt reports pain Recommendations: 1. Left Wrist - Cleanse with NS moist gauze, pat dry. Apply skin prep to periwound, cover site with xeroform and abd pad and gauze wrap. Change Daily. Defer to general surgery after I&D. Re-consult wound care Nurse for wound deterioration or wound changes
[2024-02-03 12:22] LABS: Glucose, Whole Blood 99 mg/dL (60-115)
--- NOTE | 2024-02-03 12:38 | MHC.CM.PN ---
IMM delivered. Patient lives in an apartment w/ a roommate. Functionally independent. Denies use of DME or services. Per patient, PCP Rodney Ramon [employer] left [facility]. Has appt scheduled for 03/04 with new PCP Odalis Wise MD. States he has an HCP, unsure who he named as his agent, declines to complete new HCP. Copy requested. DP: Goal is home self care via private transport. Blood cx pending, CM will continue to follow for dc needs.
[2024-02-03 14:30] LABS: Vancomycin Random 5.1 mcg/mL (15-20)
--- NOTE | 2024-02-03 14:41 | PC.NURSE ---
report given to victorina grant
--- NOTE | 2024-02-03 16:48 | P.CONAN_ITS ---
[facility] Active Problems Active Problems: All Active Problems Abscess of skin of left wrist (Acute) Abscess of wrist (Acute) Balanitis (Acute) Heart failure with reduced ejection fraction (Acute) Nonischemic cardiomyopathy (Acute) Past Medical History Medical History (Updated 02/03/24 @ 11:01 by Thomas Bernabe PA-C) Low HDL (under 40) Tobacco abuse disorder Alcohol abuse Class 1 obesity Nonischemic cardiomyopathy Heart failure with reduced ejection fraction Functional capacity: independent ambulation Family History Family history of problems with anesthesia: No Surgical History Surgical History (Updated 02/03/24 @ 14:17 by Adrianna Holt RN) [place] teeth extracted History of Problems with Anesthesia: No Social History Social History Household Members: Friend(s) Housing: Apartment Do you presently have visiting nurse or other home services: No Alcohol intake: current Alcohol intake frequency: holidays/special occasions only Patient Tobacco Use Status: Never used Tobacco Substance Use Type: Marijuana service: No Meds Allergies Allergy/AdvReac Type Severity Reaction Status Date / Time No Known Allergies Allergy Verified 02/02/24 10:49 [No Known Allergies*] Active Medications: Current Medications Acetaminophen (Acetaminophen 325 Mg Tablet) 650 mg PO Q4H PRN PRN Reason: Pain, Mild (Pain Scale 1-3) Last Admin: 02/03/24 08:21 Dose: 650 mg Enoxaparin Sodium (Enoxaparin Sodium 40 Mg/0.4 Ml Syringe) 40 mg SUBCUT Q24H [facility] Last Admin: 02/02/24 19:16 Dose: 40 mg Glucose (Glucose Gel 15 Gm Gel..Gram.) 15 gm PO Q15M PRN; Protocol PRN Reason: per Hypoglycemia Standing Ord. Piperacillin Sod/Tazobactam (Sod 4.5 gm/ Sodium Chloride) 100 mls @ 200 mls/hr IV Q6H [facility] Last Infusion: 02/03/24 12:30 Dose: Infused Dextrose/Sodium Chloride (D5ns) 1,000 mls @ 80 mls/hr IVCONT .[id number] [facility] Last Admin: 02/03/24 09:44 Dose: 80 mls/hr Dextrose (D10) 250 mls @ 750 mls/hr IV Q15M PRN; Protocol PRN Reason: per Hypoglycemia Standing Ord. Vancomycin HCl 1,250 mg/ (Sodium Chloride) 250 mls @ 166.667 mls/hr IV Q8H [facility] Metoprolol Succinate (Metoprolol Succinate Er 100 Mg Tab.Er.24h) 200 mg PO DAILY [facility]; Protocol Last Admin: 02/03/24 08:22 Dose: 200 mg Morphine Sulfate (Morphine Sulfate 4 Mg/Ml Cartridge) 4 mg IVPUSH Q4H PRN; Protocol PRN Reason: Pain, Moderate(Pain Scale 4-6) Ondansetron HCl (Ondansetron Hcl 4 Mg/2 Ml Vial) 4 mg IVPUSH Q6H PRN PRN Reason: Nausea and Vomiting Last Admin: 02/03/24 00:16 Dose: 4 mg Oxycodone HCl (Oxycodone Hcl Immed Release 5 Mg Tablet) 10 mg PO Q4H PRN PRN Reason: Pain, Moderate(Pain Scale 4-6) Last Admin: 02/02/24 19:16 Dose: 10 mg Pharmacy Consult (Consult Rx Vancomycin Dosing) 1 each MISCELLANE DAILY PRN PRN Reason: Consult order Sacubitril/Valsartan (Sacubitril/Valsartan 97/103 1 Tab Tablet) 1 tab PO BID [facility]; Protocol Last Admin: 02/03/24 08:21 Dose: 1 tab Sodium Chloride (0.9 % Sodium Chloride Flush 3 Ml Syringe) 3 ml IVFLUSH QSHIFT [facility] Last Admin: 02/03/24 08:23 Dose: 3 ml Spironolactone (Spironolactone 25 Mg Tablet) 12.5 mg PO DAILY [facility]; Protocol Last Admin: 02/03/24 08:21 Dose: 12.5 mg Home Medications ?Medication ?Instructions ?Recorded ?Confirmed ?Last Taken ?Type spironolactone 25 mg tablet 12.5 mg PO DAILY 06/17/23 02/02/24 02/02/24 History vitamin B complex 1 cap PO QAM 06/17/23 02/02/24 02/02/24 History dapagliflozin propanediol 10 mg 10 mg PO DAILY 02/02/24 02/02/24 02/02/24 History tablet (Farxiga) metoprolol succinate 200 mg 200 mg PO DAILY 02/02/24 02/02/24 02/02/24 History tablet,extended release 24 hr sacubitril 97 mg-valsartan 103 mg 1 tab PO BID 02/02/24 02/02/24 02/02/24 History tablet (Entresto) Exam Height,Weight and Vital Signs: Height 6 ft Weight 118.5 kg Last Vital Signs Temp 97.5 F 02/03/24 14:18 Pulse 103 H 02/03/24 14:18 Resp 18 02/03/24 14:18 BP 160/95 H 02/03/24 14:18 Pulse Ox 97 02/03/24 14:18 O2 Del Method Room Air 02/03/24 14:18 Pertinent Lab Results Pertinent Lab Results: Laboratory Tests 02/02/24 02/03/24 02/03/24 14:44 05:16 12:18 WBC 9.4 8.2 RBC 5.11 4.80 Hgb 15.4 14.2 Hct 43.4 40.7 L MCV 84.9 84.8 MCH 30.1 29.6 MCHC 35.5 34.9 RDW 13.1 13.2 Plt Count 243 221 MPV 8.7 L 8.7 L Immature Gran % (Auto) 0.3 0.4 Neut % (Auto) 27.5 L 26.7 L Lymph % (Auto) 64.6 H 65.0 H [place] % (Auto) 6.0 6.3 Eos % (Auto) 0.4 0.5 Baso % (Auto) 1.2 1.1 Lymph # (Auto) 6.1 H 5.3 H [place] # (Auto) 0.6 0.5 Eos # (Auto) 0.0 0.0 Baso # (Auto) 0.1 0.1 Abs Immat Gran (auto) 0.03 0.03 Absolute Neuts (auto) 2.6 2.2 Absolute Nucleated RBC 0.000 0.000 Nucleated RBC % (auto) 0.0 0.0 Smear Tech's Comments VERIFIED VERIFIED Sodium 140 138 Potassium 3.6 3.4 Chloride 107 107 Carbon Dioxide 23 22 Anion Gap 14 12 BUN 9 8 L Creatinine 0.78 0.72 Estim Creat Clear Calc 170.2 188.5 Estimated GFR > 60 > 60 POC Glucose 99 Random Glucose 96 Fasting Glucose 108 H Calcium 9.6 8.4 D Total Bilirubin 0.7 AST 34 ALT 47 H Alkaline Phosphatase 104 Total Protein 7.3 Albumin 3.4 L Random Vancomycin 02/03/24 13:53 WBC RBC Hgb Hct MCV MCH MCHC RDW Plt Count MPV Immature Gran % (Auto) Neut % (Auto) Lymph % (Auto) [place] % (Auto) Eos % (Auto) Baso % (Auto) Lymph # (Auto) [place] # (Auto) Eos # (Auto) Baso # (Auto) Abs Immat Gran (auto) Absolute Neuts (auto) Absolute Nucleated RBC Nucleated RBC % (auto) Smear Tech's Comments Sodium Potassium Chloride Carbon Dioxide Anion Gap BUN Creatinine Estim Creat Clear Calc Estimated GFR POC Glucose Random Glucose Fasting Glucose Calcium Total Bilirubin AST ALT Alkaline Phosphatase Total Protein Albumin Random Vancomycin 5.1 L Airway Mallampati Class: II TM Dist: >3cm Neck ROM: Full Loose/Missing/Broken Teeth: No Heart: rrr Lungs: cta Assessment and Plan Assessment Anesthesia Assessment: Anesthesia Plan Discussed and Smoking Cess. Discussed Final Anesthetic Review Family History of Problems with Anesthesia: No History of Problems with Anesthesia: No NPO: Yes ASA Class: III and Emergency Final Preanesthetic Review: No Changes in Pt Med Stat, Meds/Allgs Chart Reviewed, Consent Obtained/Reviewed and Anes Risks/Benef Reviewed Patient Risk: High Procedure Risk: Intermediate Anesthetic Plan Anesthetic Plan: GA Disposition: Standard PACU
[2024-02-03] MEDS: vancomycin HCL 1,250 MG in 0.9 % Sodium Chloride 250 ML 166.67 MG IV ×2 (17:04→23:42)
--- NOTE | 2024-02-03 18:12 | P.CONOP_ITS ---
History of Present Illness HPI Consult date: 02/02/24 Chief complaint: abcess Narrative: The patient is a 34-year-old left-hand dominant man who believes he had a bug bite of some kind to the volar aspect of his left wrist about a week ago. He says that he scratched it and then noticed that it began to get bigger, and more painful. He denies problems with numbness and tingling. He denies recent IV drug use. He was admitted to the hospitalist service and placed on IV antibiotics. He feels like it is not improving. [facility] Past Medical History Medical History (Updated 02/03/24 @ 11:01 by Thomas Bernabe PA-C) Low HDL (under 40) Tobacco abuse disorder Alcohol abuse Class 1 obesity Nonischemic cardiomyopathy Heart failure with reduced ejection fraction Surgical History Surgical History (Updated 02/03/24 @ 14:17 by Adrianna Holt RN) [place] teeth extracted Social History Social History Household Members: Friend(s) Housing: Apartment Do you presently have visiting nurse or other home services: No Alcohol intake: current Alcohol intake frequency: holidays/special occasions only Patient Tobacco Use Status: Never used Tobacco Substance Use Type: Marijuana service: No Meds Allergies Allergy/AdvReac Type Severity Reaction Status Date / Time No Known Allergies Allergy Verified 02/02/24 10:49 [No Known Allergies*] Active Medications: Current Medications Acetaminophen (Acetaminophen 325 Mg Tablet) 650 mg PO Q4H PRN PRN Reason: Pain, Mild (Pain Scale 1-3) Last Admin: 02/03/24 08:21 Dose: 650 mg Enoxaparin Sodium (Enoxaparin Sodium 40 Mg/0.4 Ml Syringe) 40 mg SUBCUT Q24H [facility] Last Admin: 02/02/24 19:16 Dose: 40 mg Fentanyl (Fentanyl Citrate/Pf 100 Mcg/2 Ml Vial) 50 mcg IVPUSH Q5M PRN; Protocol PRN Reason: Pain, Severe (Pain Scale 7-10) Stop: 02/04/24 00:07 Glucose (Glucose Gel 15 Gm Gel..Gram.) 15 gm PO Q15M PRN; Protocol PRN Reason: per Hypoglycemia Standing Ord. Hydromorphone HCl (Hydromorphone Hcl 0.5 Mg/0.5 Ml Syringe) 0.5 mg IVPUSH Q5M PRN; Protocol PRN Reason: Pain, Severe (Pain Scale 7-10) Stop: 02/04/24 00:07 Piperacillin Sod/Tazobactam (Sod 4.5 gm/ Sodium Chloride) 100 mls @ 200 mls/hr IV Q6H [facility] Last Infusion: 02/03/24 12:30 Dose: Infused Dextrose/Sodium Chloride (D5ns) 1,000 mls @ 80 mls/hr IVCONT .[id number] [facility] Last Admin: 02/03/24 09:44 Dose: 80 mls/hr Dextrose (D10) 250 mls @ 750 mls/hr IV Q15M PRN; Protocol PRN Reason: per Hypoglycemia Standing Ord. Vancomycin HCl 1,250 mg/ (Sodium Chloride) 250 mls @ 166.667 mls/hr IV Q8H [facility] Last Admin: 02/03/24 17:04 Dose: 166.67 mls/hr Metoprolol Succinate (Metoprolol Succinate Er 100 Mg Tab.Er.24h) 200 mg PO DAILY [facility]; Protocol Last Admin: 02/03/24 08:22 Dose: 200 mg Morphine Sulfate (Morphine Sulfate 4 Mg/Ml Cartridge) 4 mg IVPUSH Q4H PRN; Protocol PRN Reason: Pain, Moderate(Pain Scale 4-6) Ondansetron HCl (Ondansetron Hcl 4 Mg/2 Ml Vial) 4 mg IVPUSH Q6H PRN PRN Reason: Nausea and Vomiting Last Admin: 02/03/24 00:16 Dose: 4 mg Oxycodone HCl (Oxycodone Hcl Immed Release 5 Mg Tablet) 10 mg PO Q4H PRN PRN Reason: Pain, Moderate(Pain Scale 4-6) Last Admin: 02/02/24 19:16 Dose: 10 mg Pharmacy Consult (Consult Rx Vancomycin Dosing) 1 each MISCELLANE DAILY PRN PRN Reason: Consult order Sacubitril/Valsartan (Sacubitril/Valsartan 97/103 1 Tab Tablet) 1 tab PO BID [facility]; Protocol Last Admin: 02/03/24 08:21 Dose: 1 tab Sodium Chloride (0.9 % Sodium Chloride Flush 3 Ml Syringe) 3 ml IVFLUSH QSHIFT [facility] Last Admin: 02/03/24 17:08 Dose: Not Given Spironolactone (Spironolactone 25 Mg Tablet) 12.5 mg PO DAILY [facility]; Protocol Last Admin: 02/03/24 08:21 Dose: 12.5 mg Home Medications ?Medication ?Instructions ?Recorded ?Confirmed ?Last Taken ?Type spironolactone 25 mg tablet 12.5 mg PO DAILY 06/17/23 02/02/24 02/02/24 History vitamin B complex 1 cap PO QAM 06/17/23 02/02/24 02/02/24 History dapagliflozin propanediol 10 mg 10 mg PO DAILY 02/02/24 02/02/24 02/02/24 History tablet (Farxiga) metoprolol succinate 200 mg 200 mg PO DAILY 02/02/24 02/02/24 02/02/24 History tablet,extended release 24 hr sacubitril 97 mg-valsartan 103 mg 1 tab PO BID 02/02/24 02/02/24 02/02/24 History tablet (Entresto) Physical Exam 2 Vital Signs: Vital Signs: Last Vital Signs Temp 97.5 F 02/03/24 14:18 Pulse 103 H 02/03/24 14:18 Resp 18 02/03/24 14:18 BP 160/95 H 02/03/24 14:18 Pulse Ox 97 02/03/24 14:18 O2 Del Method Room Air 02/03/24 14:18 BMI result Body Mass Index 35.4 Extrem: Other: The patient was alert oriented and in no acute distress. Regarding the left upper extremity: Sensation was grossly intact to the tips of all digits and he had good cap refill. He can make a fist and extend all digits without difficulty or discomfort. He has a fairly large fluctuant mass on the volar ulnar aspect of his left wrist. This measures about 2.5-3 cm in diameter and is raised by about 1.5 cm. This mass is tender and fluctuant. It did not feel to be pulsatile. He did not have increased pain with finger range of motion. There were 2 or 3 partial-thickness small wounds. It is unclear if this could have been from a bite or from scratching. Results Labs 02/03/24 05:16 02/03/24 05:16 Labs: Abnormal lab results 02/03/24 02/03/24 Range/Units 05:16 13:53 Hct 40.7 L (42.0-52.0) % MPV 8.7 L (9.4-12.4) fL Neut % (Auto) 26.7 L (45-73) % Lymph % (Auto) 65.0 H (20-40) % Lymph # (Auto) 5.3 H (1.2-4.9) X10*3/uL BUN 8 L (9-16) mg/dL Fasting Glucose 108 H (60-99) mg/dL ALT 47 H (0-40) U/L Albumin 3.4 L (3.5-5.0) g/dL Random Vancomycin 5.1 L (15-20) mcg/mL H & H 02/02/24 02/03/24 Range/Units 14:44 05:16 Hgb 15.4 14.2 (14.0-18.0) g/dl Hct 43.4 40.7 L (42.0-52.0) % All other labs normal. Assessment and Plan (1) Abscess of wrist: Status: Acute Plan Assessment and plan: 1. Left volar wrist abscess. The this appears to have developed spontaneously over about a week. Patient denies IV drug use and believes it has from a bug bite. No pain with active finger range of motion. I educated the patient about this condition we discussed operative and non operative treatment options. I am recommending an operative I and D. The risks and benefits of operative treatment were discussed with the patient and the patient wishes to proceed with surgery. These risks include, but are not limited to risk of damage to blood vessels, nerves, tendons, infection, recurrence, incomplete relief of preoperative symptoms, persistent pain, possible need for further surgery and the risks associated with regional blocks and anesthesia. The plan is to take the patient to the operating room today for the following procedures: 1. I&D of volar left wrist abscess 2. [ ] All of the preoperative paperwork including the consent was filled out today. All the patient's questions were answered. Of note, the patient apparently has a court date tomorrow. He has an ankle monitor on his right ankle presumably placed by the [employer] system. The patient is requesting if at all possible that he be discharged tonight, as he has a court date early tomorrow morning. Procedures Date of Service Date of Service: 02/03/24
--- NOTE | 2024-02-03 18:21 | MHC.SHP ---
Pre-Procedural Eval Section A - 24 Hr Update-Section A only Date of Service: 02/03/24 The patient is an INPATIENT: Yes Changes since office visit: No Cold of Flu in the past 2 weeks, No New Medical Problems, No Changes in Medication and No Patient answered all questions The patient has been examined within 24 hours of the surgical procedure. The History & Physical has been completed within 30 days and I have reviewed it.: Yes Section B - Complete if H&P > 30 days Chief Complaint: abcess Allergies: Allergies Allergy/AdvReac Type Severity Reaction Status Date / Time No Known Allergies Allergy Verified 02/02/24 10:49 [No Known Allergies*] Exam Exam Comment: Left volar wrist abscess Plan Diagnosis/Plan: Unchanged I have reviewed the history and physical and performed a pertinent physical examination on my patient. No changes have occurred unless specified. Time Spent With Patient Time: Total time managing care of this patient today ____ minutes.
--- NOTE | 2024-02-03 18:21 | W.PM.OPN ---
Operative Note Operative Note Date of Service: 02/03/24 Narrative: Operative Note Narrative: Preop diagnosis: 1. Left volar wrist abscess Postop diagnosis: Same Procedure: 1. Left volar wrist abscess I and D Surgeon: Nena Mustafa MD Anesthesia: General Anesthesia Findings: Copious amounts of creamy yellow purulence in abscess cavity Implants: No drain placed, as patient anticipated to insist on leaving the hospital tonight Tourniquet time: 0 minutes EBL: 5.0 ml Specimen: Cultures from left volar wrist abscess Drains: None Complications: None Disposition: Brought to the recovery room in stable condition Plan: Admit back to floor Continue antibiotics Patient very eager to be discharged tonight because of pending court date tomorrow morning. If discharged please assure discharged with appropriate oral antibiotics, and instructions for daily dressing changes and wound care. He should Follow-up in later this week in ortho clinic for wound check, and to check cultures Indications: The patient is a 34 year old man with a one-week history of a growing left volar wrist abscess . The risks and benefits of operative treatment, including but not limited to risk of damage to blood vessels, nerves, tendons, infection, recurrence, persistent pain or numbness, incomplete resolution of preoperative symptoms, or need for further surgery were discussed with the patient and they wished to proceed with surgery. Procedure: Once consent was obtained patient was brought back to the operating suite and placed in the operating table in a supine position. Anesthesia was administered by the anesthesia team. A tourniquet was applied to the proximal aspect of the left upper extremity and the limb was prepped and draped in a standard surgical fashion. The tourniquet was not inflated A 2 cm longitudinally oriented incision was made centered over the large abscess on the volar aspect of his left wrist. The incision was made through the skin to the subcutaneous tissues using a 15. Blade. There was a copious amount of creamy yellow chunky purulence. Cultures were obtained. Some fibrinous exudate was debrided. The abscess cavity was copiously irrigated with normal saline. No other masses or abscess cavity was found. Because I believe the patient will insist on leaving the hospital tonight, I decided not to place a drain. The abscess cavity remained open in any case for drainage. The wound was not sutured closed, and a sterile dressing was placed. The patient appears to have tolerated the procedure well and with no complications. All digits were well vascularized conclusion of the case.
[2024-02-03] MEDS: Enoxaparin Sodium 40 MG/0.4 ML SYRINGE SUBCUT (20:26)
[2024-02-04 03:23] VITALS: BP 141/88; PULSE 91; RESP 16; TEMP 36.2; O2SAT 99
[2024-02-04] MEDS: Dextrose 5 % and 0.9 % NaCl 1,000 ML 80 ML IVCONT (05:28)
[2024-02-04] MEDS: Piperacillin Sodium/Tazobactam 4.5 GM in 0.9 % Sodium Chloride 100 ML IV (05:30)
[2024-02-04 07:08] LABS: Hematocrit 41.7 % (42.0-52.0); Hemoglobin 14.4 g/dl (14.0-18.0); Mean Corpuscular HGB Conc 34.5 g/dl (31.0-36.0); Mean Corpuscular Hemoglobin 29.9 pg (27.0-33.0); Mean Corpuscular Volume 86.5 fL (80.0-98.0); Mean Platelet Volume 8.7 fL (9.4-12.4); Platelet Count 234 X10*3/uL (160-400); Red Blood Count 4.82 X10*6/uL (4.60-5.80); Red Cell Distribution Width 13.3 % (11.0-16.0); White Blood Count 6.4 X10*3/uL (4.8-10.8)
--- NOTE | 2024-02-04 07:10 | P.DS_ITS ---
DS: Providers Provider Date of Service: 02/04/24 Date of admission: 02/02/24 15:10 Primary care physician: Rodney Ramon NP Consults: 02/02/24 19:05 Consult to Wound Care Routine Reason for consultation: abscess to left wrist 02/03/24 07:40 Consult to Orthopedics Routine [place] [facility] [place] [facility] Reason for consultation: left hand abscess Has provider been notified: No DS: Diagnosis Discharge Diagnosis (1) Abscess of skin of left wrist: Status: Acute DS: Summary Hospital Course Hospital Course: History of presenting illness: Date of Service: 02/02/24 Chief Complaint: Abscess left wrist Patient is a 34-year-old right hand dominant male presenting to the emergency department with complaint of abscess to left anterior wrist for 6 days. States he initially thought this was a bug bite as it was mildly pruritic and small. Reports that over the past few days the area has increased in size and began draining clear liquid. He denies fever/chills/body aches. Denies history of MRSA. Denies IV drug use. ER discussed with ortho; requested medical admission IV antibiotics and likely I&D in a.m. Hospital course: Left volar wrist abscess. 34-year-old male admitted with with abscess to left wrist that worsened over the last several days, with no associated fever, chills , no leukocytosis patient treated with IV vancomycin and Zosyn, blood cultures so far showed no growth, patient seen by orthopedic surgeon and underwent I and D, copious amount of creamy yellow chunky purulence was drained cultures were obtained and are pending abscess cavity was irrigated with normal saline no other masses or abscess cavities were found, since patient has to leave for a court appointment he is being discharged on by mouth doxycycline for 7 days and has been recommended to do daily sterile dressing in follow-up with Orthopedic surgery in next 1-2 days for follow-up on cultures and wound check, his blood sugars remained stable and he has been recommended to continue Farxiga 10 mg daily and follow diabetic diet. In regard to Nonischemic cardiomyopathy/heart failure with reduced ejection fraction he has been continued on all home medications Time Attestation Discharge Coordination Time (in mins): 36 Quality: Safe Use of Opioids Does Pt have an Active Cancer Diagnosis on the Problem List?: No Quality: Stroke Does the patient have a stroke diagnosis?: No Physical Exam Vital Signs: Vital Signs: Last Vital Signs Temp 97.2 F 02/04/24 03:23 Pulse 91 02/04/24 03:23 Resp 16 02/04/24 03:23 BP 141/88 H 02/04/24 03:23 Pulse Ox 99 02/04/24 03:23 O2 Del Method Room Air 02/04/24 03:23 O2 Flow Rate 6 02/03/24 19:18 BMI result Body Mass Index 35.4 Const: Other: General awake alert x3, in no acute distress. Neck supple no JVD. CVS regular rate rhythm, Respiratory lungs clear to auscultation, no respiratory distress, no wheeze, no rhonchi. Gastrointestinal abdomen soft, nontender, bowel sounds audible, no guarding , no rigidity. Extremities left hand good range of motion at left wrist and all fingers, dressing in place at site of left wrist abscess with no drainage noted, no surrounding redness. Neuro non focal Skin no rash, warm and dry Psych appropriate affect DS: Data Data Completed and Pending Labs on day of discharge: Laboratory Results - last 24 hr 02/03/24 02/03/24 12:18 13:53 POC Glucose 99 Random Vancomycin 5.1 L Preliminary micro results at discharge 02/02/24 20:24 Blood Culture - Preliminary Blood - Venous No growth after 24 hours. 02/02/24 20:24 Blood Culture - Preliminary Blood - Venous No growth after 24 hours. Discharge Plan Discharge Anticipated Discharge Date/Time: 02/04/24 06:55 Patient Disposition: Home, Self-Care Discharge Diagnosis: Left wrist abscess Diabetes Referrals: Rodney Ramon NP [Primary Care Provider] - 1 Week Discharge Medications: New doxycycline hyclate 100 mg capsule 100 mg PO BID Qty: 14 0RF Continued metoprolol succinate 200 mg tablet extended release 24 hr 200 mg PO DAILY dapagliflozin propanediol [Farxiga] 10 mg tablet 10 mg PO DAILY Entresto 97-103 mg tablet 1 tab PO BID spironolactone 25 mg tablet 12.5 mg PO DAILY vitamin B complex Capsule 1 cap PO QAM Discharge Orders: Discharge Order (Routine); Ordered 02/04/24 Ordered By: Reese Hull Diet: Diabetic diet Activity on Discharge: As tolerated Stand Alone Forms: Patient Portal Discharge page Print Language: Korean Care Plan Goals: Left Volar wrist abscess do daily Dry stressing Follow up with Dr. Hernandez from hand surgery end of this week call for appointment for 02/04 or 02/05. Returned to check with worsening swelling, redness or high-grade fever Take by mouth antibiotics as prescribed. Health Concerns: Diabetes Plan of Treatment: Outpatient follow-up with Dr. Hernandez as above Outpatient follow-up with pcp call for appointment. Assessment: As above
[2024-02-04 07:28] LABS: Alanine Aminotransferase 47 U/L (0-40); Albumin Level 3.4 g/dL (3.5-5.0); Alkaline Phosphatase 91 U/L (39-117); Anion Gap 15 (12-20); Aspartate Amino Transferase 32 U/L (5-37); Bilirubin Total 0.6 mg/dL (0.0-1.0); Blood Urea Nitrogen 6 mg/dL (9-16); Calcium 8.6 mg/dL (8.4-10.2); Carbon Dioxide 19 mmol/L (22-29); Chloride 107 mmol/L (96-108); Creatinine Clr Calc Pharmacy 183.4; Estimated Glomerular Filt Rate > 60; Glucose Fasting 117 mg/dL (60-99); Potassium 3.1 mmol/L (3.3-5.1); Sodium 138 mmol/L (135-145); Total Protein 7.1 g/dL (6.5-8.0)
--- NOTE | 2024-02-04 07:39 | PC.NURSE ---
dressing change to left wrist. Instructed pt on self dressing change and supplies sent- verbalizes understanding and states he will be able to complete dressings at home
--- NOTE | 2024-02-04 08:25 | MHC.CM.PN ---
Patient discharged home self care via private transport before CM was able to see patient.
[2024-02-04 09:09] LABS: Atypical Lymph Absolute Manual 0.4 x10*3/uL; Atypical Lymphs Percent Manual 6 % (0-6); Band Neutrophils Percent 0 % (3-5); Eosinophils Absolute Manual 0.1 X10*3/uL (0.0-0.4); Eosinophils Percent Manual 2 % (0-4); Lymphocytes Absolute Manual 3.3 X10*3/uL (1.2-4.9); Lymphocytes Percent Manual 51 % (20-40); Monocytes Absolute Manual 0.3 X10*3/uL (0.1-1.2); Monocytes Percent Manual 4 % (2-11); Neutrophils Absolute Manual 2.4 X10*3/uL (2.0-8.3); Neutrophils Percent Manual 37 % (45-73)
[2024-02-04 09:11] LABS: Platelet Estimate NORMAL (NORMAL); Platelet Morphology Comment NORMAL; RBC Morphology NORMAL
--- NOTE | 2024-02-04 09:15 | HO.POSTANES ---
Post Anesthesia Evaluation Post Anesthesia Evaluation Date of Service: 02/03/24 Vital Signs: Vital Signs Temp Pulse Resp BP Pulse Ox O2 Del Method 02/04/24 03:23 97.2 F 91 16 141/88 H 99 Room Air 02/03/24 23:32 96.9 F 81 16 154/83 H 98 Room Air Anesthesia: General LMA Mental Status: Awake Pain Control: Satisfactory Nausea/Vomiting: None Hydration: Adequate Anesthesia-Related Issues: No Anes. Related Issues
== END 2024-02-04 08:00 | disposition home or self-care (01) | DRG 603 ==
LOC: HO.ED 15:12 → HO.EDOVER 15:17 → HO.S3 18:04
PROVIDERS: Orthopaedic Surgery; Registered Nurse Emergency; Admitting Provider Hospitalist; Emergency Provider Emergency Medicine; PCP Internal Medicine; Visit Provider Hospitalist
PROC: 0J9H0ZZ Drainage of Left Lower Arm Subcutaneous Tissue and Fascia, Open Approach (ICD-10-PCS; principal; 2024-02-03 17:00)
DX: L02.414 Cutaneous abscess of left upper limb (principal); I50.22 Chronic systolic (congestive) heart failure; I42.8 Other cardiomyopathies; E11.9 Type 2 diabetes mellitus without complications; Z79.899 Other long term (current) drug therapy
CPT/HCPCS: 36415; 73110; 80048; 80053; 80202; 82947; 85007; 85025; 85027; 87040; 87070; 87077; 87186; 87205; 99285; J1650; J2250; J2405; J2543; J2704; J2795; J3010; J3370; J3371

== ENCOUNTER → 2024-02-02 15:10 | Outpatient (BNV) | payer MEDICARE, MEDICAID, SELFPAY | PROVIDERS: Admitting Provider Hospitalist; Emergency Provider Emergency Medicine; PCP Registered Nurse; Visit Provider Physician Assistant | DX: L02.414 Cutaneous abscess of left upper limb (principal) | CPT/HCPCS: 25028; 99222; 99499 ==

== ENCOUNTER → 2024-02-02 15:10 | Outpatient (BNV) | payer MEDICARE, MEDICAID, SELFPAY | PROVIDERS: Admitting Provider Hospitalist; Emergency Provider Emergency Medicine; PCP Registered Nurse; Visit Provider Hospitalist | DX: L02.414 Cutaneous abscess of left upper limb (principal) | CPT/HCPCS: 99222; 99232; 99239 ==

== ENCOUNTER 2024-02-06 10:11 | Outpatient (AMB) | payer MEDICARE, MEDICAID, SELFPAY ==
--- NOTE | 2024-02-06 10:16 | MHC.OFFVIS ---
Intake Visit Reasons: wound check Intake Note: Shoaib a 34 year old male who presents today for a post operative visit s/p I&D of left wrist on 02/03/24 AR. Patient reports that he continues to do daily dressing changes. States he has tenderness and continues to have swelling. Allergies No Known Allergies [No Known Allergies*] Allergy (Verified 02/06/24 10:59) HPI HPI wound check: Details: 34-year-old male who returns to the office today for a wound check s/p left wrist I&D, 02/03/[address] Mustafa. He continues to do daily dressing changes as instructed. He reports he has tenderness as well as swelling in his wrist. He has no other concerns. [facility] Medical History (Updated 02/03/24 @ 11:01 by Thomas Bernabe PA-C) Low HDL (under 40) Tobacco abuse disorder Alcohol abuse Class 1 obesity Nonischemic cardiomyopathy Heart failure with reduced ejection fraction Surgical History (Updated 02/03/24 @ 14:17 by Adrianna Holt RN) [place] teeth extracted Social History Household Members: Friend(s) Housing: Apartment Do you presently have visiting nurse or other home services: No Alcohol intake: current Alcohol intake frequency: holidays/special occasions only Patient Tobacco Use Status: Never used Tobacco Substance Use Type: Marijuana service: No Review of Systems Const All systems reviewed & are unremarkable except as noted in HPI and below Physical Exam Extrem Other: Left wrist: Wound over the dorsal aspect with no active drainage but there is some purulent discharge which I am unable to express today.No pain with axial loading. Pulses are intact. Assessment & Plan Assessment & Plan (1) Abscess of skin of left wrist: Code(s): L02.414 - Cutaneous abscess of left upper limb Category: Medical Plan He is going to continue with antibiotics as instructed. I did encourage him to perform warm water compress 3-4 times a day to allow any pus to drain to wash out. If symptoms persist or worsens, patient will contact the office or present to ED, otherwise he will see me on Friday to reexamine if he would require a repeat washout in OR. He was a bit hesitant for following up at OR but I did explain him the importance of going to OR. Patient Instructions: Scribed for Thomas Bernabe PA-C, by Pato Yuan medical biller/coder, on 02/06/2024 at 10:15 AM SONNY. Thomas Alejandro PA-C, have personally reviewed and agree with the information entered by the scribe. Coding Level of Care Code Global (43967) Diagnoses Abscess of skin of left wrist L02.414
== END 2024-02-06 11:34 | disposition home or self-care (01) ==
PROVIDERS: PCP Internal Medicine; Visit Provider Physician Assistant
DX: L02.414 Cutaneous abscess of left upper limb (principal)
CPT/HCPCS: 99024

== ENCOUNTER → 2024-02-06 10:11 | Outpatient (BNVA) | payer MEDICARE, MEDICAID, SELFPAY | PROVIDERS: PCP Internal Medicine; Visit Provider Physician Assistant | DX: Z48.817 Encounter for surgical aftercare following surgery on the skin and subcutaneous tissue (principal) | CPT/HCPCS: 99212 ==

== ENCOUNTER 2024-02-09 13:54 | Outpatient (AMB) | payer MEDICARE, MEDICAID, SELFPAY ==
--- NOTE | 2024-02-09 14:11 | A.OFFVIS_ITS ---
Intake Visit Reasons: OV-s/p I&D left wrist-wound check Intake Note: Shoaib a 34 year old male who presents today for a post operative visit s/p I&D of left wrist on 02/03/24 AR. Patient reports that he is doing well, state he continues taking antibiotic as prescribed. Allergies No Known Allergies [No Known Allergies*] Allergy (Verified 02/09/24 14:18) HPI HPI OV-s/p I&D left wrist-wound check: Details: 34-year-old male who returns to the office today for a post-op wound check of left wrist I&D, 02/03/[address] Mustafa. He states he has improvement in his pain and is doing well overall. He continues to take antibiotics as prescribed. He has no other concerns today. [facility] Medical History (Updated 02/03/24 @ 11:01 by Thomas Bernabe PA-C) Low HDL (under 40) Tobacco abuse disorder Alcohol abuse Class 1 obesity Nonischemic cardiomyopathy Heart failure with reduced ejection fraction Surgical History [place] teeth extracted Social History Household Members: Friend(s) Housing: Apartment Do you presently have visiting nurse or other home services: No Alcohol intake: current Alcohol intake frequency: holidays/special occasions only Patient Tobacco Use Status: Never used Tobacco Substance Use Type: Marijuana service: No Review of Systems Const All systems reviewed & are unremarkable except as noted in HPI and below Physical Exam Extrem Other: Left wrist: Wound over the dorsal aspect with no active drainage but there is some questionable granulation tissue within the wound surround by beefy pink edges.No pain with axial loading. Pulses are intact. Assessment & Plan Assessment & Plan (1) Abscess of skin of left wrist: Code(s): L02.414 - Cutaneous abscess of left upper limb Category: Medical Plan I debrided the wound until we had some fresh bleeding tissue to promote healing. I performed wet to dry dressing which he will do on own twice a day at home. He will continue with antibiotics and see me back on Friday for repeat wound check, sooner if needed. Patient Instructions: Scribed for Thomas Bernabe PA-C, by Pato Abhang, biomedical engineering technician, on 01/28/2024 at 2:00 PM Thomas THURSTON PA-C, have personally reviewed and agree with the information entered by the scribe. Coding Level of Care Code Global (43030) Diagnoses Abscess of skin of left wrist L02.414
== END 2024-02-09 14:46 | disposition home or self-care (01) ==
PROVIDERS: PCP Internal Medicine; Visit Provider Physician Assistant
DX: L02.414 Cutaneous abscess of left upper limb (principal)
CPT/HCPCS: 97597; 99024

== ENCOUNTER → 2024-02-09 13:54 | Outpatient (BNVA) | payer MEDICARE, MEDICAID, SELFPAY | PROVIDERS: PCP Internal Medicine; Visit Provider Physician Assistant | DX: Z48.817 Encounter for surgical aftercare following surgery on the skin and subcutaneous tissue (principal); Z79.2 Long term (current) use of antibiotics; Z98.890 Other specified postprocedural states | CPT/HCPCS: 99212 ==

== ENCOUNTER 2024-02-11 08:49 | Outpatient (AMB) | payer MEDICARE, MEDICAID, SELFPAY ==
--- NOTE | 2024-02-11 08:58 | MHC.OFFVIS ---
Intake Visit Reasons: OV-s/p I&D left wrist-wound check Intake Note: Shoaib a 34 year old male who presents today for a post operative wound check s/p I&D of left wrist on 02/03/24 AR. Patient reports he is doing well and had felt an improvement. States he has one dose of antibiotics left. Allergies No Known Allergies [No Known Allergies*] Allergy (Verified 02/11/24 09:15) HPI HPI OV-s/p I&D left wrist-wound check: Details: 34-year-old male who returns to the office today for post-op wound check s/p left wrist I&D, 02/03/[address] Mustafa. He states he has improvement in his pain and is doing well overall. He is taking his antibiotics as instructed. He has no other concerns today. [facility] Medical History Low HDL (under 40) Tobacco abuse disorder Alcohol abuse Class 1 obesity Nonischemic cardiomyopathy Heart failure with reduced ejection fraction Surgical History [place] teeth extracted Social History Household Members: Friend(s) Housing: Apartment Do you presently have visiting nurse or other home services: No Alcohol intake: current Alcohol intake frequency: holidays/special occasions only Patient Tobacco Use Status: Never used Tobacco Substance Use Type: Marijuana service: No Review of Systems Const All systems reviewed & are unremarkable except as noted in HPI and below Physical Exam Extrem Other: Left wrist: Wound over the dorsal aspect with no active drainage. The wound is surrounded by clean, pink edges. .No pain with axial loading. Pulses are intact. Assessment & Plan Assessment & Plan (1) Abscess of skin of left wrist: Code(s): L02.414 - Cutaneous abscess of left upper limb Category: Medical Plan He will continue with wet to dry dressing changes twice a day. I did give him a refill for antibiotics in the office today. He will see me back on Friday for a wound check, sooner if needed. Medications: Changed From doxycycline hyclate 100 mg PO BID 14 caps 0RF To doxycycline hyclate 100 mg PO BID 14 caps 0RF 7 days Patient Instructions: Scribed for Ta-Keke Meuse, PA-C, by Pato Yuan, medical scientist, on 02/11/2024 at 8:45 AM EST.? I, Thomas Bernabe PA-C, have personally reviewed and agree with the information entered by the scribe. Coding Level of Care Code Global (12431) Diagnoses Abscess of skin of left wrist L02.414
== END 2024-02-11 09:16 | disposition home or self-care (01) ==
PROVIDERS: PCP Internal Medicine; Visit Provider Physician Assistant
DX: L02.414 Cutaneous abscess of left upper limb (principal)
CPT/HCPCS: 99024

== ENCOUNTER → 2024-02-11 08:49 | Outpatient (BNVA) | payer MEDICARE, MEDICAID, SELFPAY | PROVIDERS: PCP Internal Medicine; Visit Provider Physician Assistant | DX: N48.1 Balanitis (principal); L02.414 Cutaneous abscess of left upper limb | CPT/HCPCS: 99212 ==

== ENCOUNTER 2024-02-11 09:13 | Outpatient (AMB) | payer MEDICARE, MEDICAID, SELFPAY ==
--- NOTE | 2024-02-11 09:14 | A.OFFVIS_ITS ---
Intake Visit Reasons: Balanitis? Intake Note: Patient presents for follow up visit Balanitis Urology Medications: none Blood Thinner: none Manager Heart Failure Required: No Accompanied by: Self / Same As Patient Allergies No Known Allergies [No Known Allergies*] Allergy (Verified 02/11/24 09:15) [facility] Comments Details: Cy is a pleasant 34-year-old male patient of Dr. Ramon. He has a past medical history of alcohol abuse, heart failure, and hypertension. He presents to the office today for balanitis. In discussion with the patient today he reports since his last office visit here he had been doing well up until about 2-3 weeks ago when he started experiencing redness to the gland of his penis. He is not currently sexually active as he does not have a partner. He discusses having recently broken up with his girlfriend approximately 1 month ago. He otherwise denies any bothersome urinary issues or concerns. In assessment of the patient today the penis is uncircumcised and upon retraction of penile foreskin the gland of the penis does appear reddneded with areas of dryness to the foreskin of the penis. No drainage, open areas, and or foul smell noted. He denies urinary urgency, urinary frequency, incontinence, nocturia, hematuria, dysuria, foul smelling urine, changes to urinary stream, flank pain, fever, and or chills. He is happy with his current voiding parameters. He otherwise offers no other issues or concerns at this time. [facility] Medical History Low HDL (under 40) Tobacco abuse disorder Alcohol abuse Class 1 obesity Nonischemic cardiomyopathy Heart failure with reduced ejection fraction Surgical History [place] teeth extracted Social History Household Members: Friend(s) Housing: Apartment Do you presently have visiting nurse or other home services: No Alcohol intake: current Alcohol intake frequency: holidays/special occasions only Patient Tobacco Use Status: Never used Tobacco Substance Use Type: Marijuana service: No Review of Systems Const Reports as per HPI Eyes Reports no additional complaints ENT Reports no additional complaints Card Reports as per HPI Resp Reports no additional complaints GI Reports no additional complaints Reports as per HPI Musc Reports no additional complaints Neuro Reports no additional complaints Psych Reports no additional complaints Endo Reports no additional complaints Reinaldo/Lymph Reports no additional complaints Aller/Immun Reports no additional complaints Physical Exam Const General: cooperative, healthy appearing, comfortable, no acute distress, well developed, alert and awake Nutritional Appearance: overweight Orientation/consciousness: patient oriented x3 Limitations: no limitations HEENT Head: Yes normal to inspection, Yes normocephalic and Yes atraumatic Ears: hearing grossly normal bilaterally Eyes General: appearance normal, both eyes and all related structures Neck Neck: Yes normal visual inspection and Yes trachea midline Chest Chest palpation & inspection: normal inspection of the chest Resp Effort & Inspection: normal respiratory effort and able to speak in complete sentences Cardio Rate: regular rate GI Inspection: Yes normal to inspection General: Yes no CVA tenderness Penis: normal penis, uncircumcised and other ( erythematous (penile gland; foreskin is retractable )) Meatus: meatus normal Scrotum: scrotum normal Testes: Testes normal Back/Spine/Pelvis Back: no CVA tenderness Skin General skin exam: no rashes or lesions noted Neuro General: patient oriented x3 Extrem General: Yes normal to inspection Psych Appearance: grossly normal and well kempt Mental Status: mental status grossly normal Speech and movement: Normal speech and movement present and Clear speech present Affect: normal affect Attitude: cooperative Thought process: Normal thought process present Thought content: Normal thought content present Insight: Fair insight present (Psych) Judgement: Fair judgement present (Psych) Assessment & Plan Assessment & Plan (1) Balanitis: Code(s): N48.1 - Balanitis Category: Medical Plan Patient denies any bothersome urinary issues at this time. Start clotrimazole-betamethasone as discussed and prescribed. Patient reports be happy with current voiding parameters. Discussed proper care area. Discussed risks and benefits of surgical intervention with circumcision; this was discussed at length. All questions were answered. Follow-up in 1-3 months; or sooner with any issues, concerns, and or questions. Orders: Orders AMB Urinalysis Automated Today Z13.9 - Encounter for screening, unspecified Medications: Refilled clotrimazole-betamethasone 1-0.05 % Apply thin coat 2 times per day 1 appl topical BID 45 grams 1RF 4 weeks N48.1 - Balanitis Patient Instructions: The patient had an opportunity to ask questions regarding the treatment plan. All questions were answered. Physical exam, labs, and imaging were discussed and reviewed in detail. As well as risks, benefits, and discussion of treatment choices. No major barriers to understanding were identified. The patient expressed understanding and agreement with the above treatment plan. The patient was made aware they should contact our office by phone for worsening of their current condition, the appearance of new symptoms, or with any questions or concerns. Compliance is encouraged with any medications and follow up testing that is ordered. It is a privilege to be allowed the opportunity to participate in? your urological care.? Again, if you have any questions or concerns If you have any questions or concerns please do not hesitate to contact me. The office is [phone]. This note is constructed using voice recognition software. While every effort has been made to ensure accuracy spray booth operator errors may have been included. Yours sincerely, NASIMA Deras Coding Level of Care Code Est Pt Level 4 (27798) Diagnoses Balanitis N48.1
== END 2024-02-11 09:34 | disposition home or self-care (01) ==
PROVIDERS: PCP Registered Nurse; Visit Provider Nurse Practitioner Family
DX: N48.1 Balanitis (principal)
CPT/HCPCS: 99214

== ENCOUNTER 2024-02-16 10:35 | Outpatient (AMB) | payer MEDICARE, MEDICAID, SELFPAY ==
--- NOTE | 2024-02-16 10:36 | A.OFFVIS_ITS ---
Intake Visit Reasons: OV-s/p I&D left wrist-wound check Intake Note: Shoaib a 34 year old male who presents today for a post operative wound check s/p I&D of left wrist on 02/03/24 AR. Patient reports he is doing better. He expresses no increase on pain. Allergies No Known Allergies [No Known Allergies*] Allergy (Verified 02/16/24 10:41) HPI HPI OV-s/p I&D left wrist-wound check: Details: 34-year-old male who returns to the office today for a wound check s/p left wrist I&D, 02/03/[address] Mustafa. He states he has no pain and is doing well overall. He continues to perform wet to dry dressing changes as instructed. He has no concerns today. [facility] Medical History Low HDL (under 40) Tobacco abuse disorder Alcohol abuse Class 1 obesity Nonischemic cardiomyopathy Heart failure with reduced ejection fraction Surgical History [place] teeth extracted Social History Household Members: Friend(s) Housing: Apartment Do you presently have visiting nurse or other home services: No Alcohol intake: current Alcohol intake frequency: holidays/special occasions only Patient Tobacco Use Status: Never used Tobacco Substance Use Type: Marijuana service: No Review of Systems Const All systems reviewed & are unremarkable except as noted in HPI and below Physical Exam Extrem Other: Left wrist: Wound over the dorsal aspect with no active drainage. The wound is surrounded by clean, pink edges. .No pain with axial loading. Pulses are intact. Assessment & Plan Assessment & Plan (1) Abscess of skin of left wrist: Code(s): L02.414 - Cutaneous abscess of left upper limb Category: Medical Plan He will continue with wet to dry dressing changes until the area becomes pea sized. Then he will discontinue wet to dry and perform dry dressing changes as needed. He will see us back in 10 days for a follow-up, sooner if needed. Patient Instructions: Scribed for Thomas Bernabe PA-C, by Pato Yuan dental assistant medical assistant, on 02/16/2024 at 10:30 AM EST.? I, Thomas Bernabe PA-C, have personally reviewed and agree with the information entered by the scribe. Coding Level of Care Code Global (56409) Diagnoses Abscess of skin of left wrist L02.414
== END 2024-02-16 11:06 | disposition home or self-care (01) ==
PROVIDERS: PCP Internal Medicine; Visit Provider Physician Assistant
DX: L02.414 Cutaneous abscess of left upper limb (principal)
CPT/HCPCS: 99024

== ENCOUNTER → 2024-02-16 10:35 | Outpatient (BNVA) | payer MEDICARE, MEDICAID, SELFPAY | PROVIDERS: PCP Internal Medicine; Visit Provider Physician Assistant | DX: L02.414 Cutaneous abscess of left upper limb (principal) | CPT/HCPCS: 99212 ==

== ENCOUNTER 2025-09-23 12:18 | Emergency (ER) | payer MEDICARE, MEDICAID, SELFPAY ==
[2025-09-23 12:32] VITALS: BP 127/82; PULSE 77; RESP 20; TEMP 36.6; O2SAT 94; BMI 35.8
[2025-09-23 14:32] LABS: Resp Syncy Virus RNA Qual PCR NEGATIVE (Negative); SARS COV2 PCR INHOUSE NEGATIVE (Negative)
--- NOTE | 2025-09-23 15:02 | ED.EYEPROB ---
HPI - Eye Problem General Chief complaint: Eye Problems Stated complaint: Eye Allergies Time Seen by Provider: 09/23/25 15:02 Source: patient, RN notes reviewed and old records reviewed Mode of arrival: ambulatory History of Present Illness ED Provider: Swati Anderson PA-C HPI Narrative: 35-year-old male with no significant past medical history presenting to the ED complaining of bilateral eye erythema, irritation, pruritus, watery & mucus drainage x5 days. Admits symptoms started after playing with a dog. Does have known allergy to dogs. Wears glasses, no contacts. Denies vision loss, foreign body sensation, blurry/double vision, fever, injury Related Data Home Medications ?Medication ?Instructions ?Recorded ?Confirmed spironolactone 25 mg tablet 12.5 mg PO DAILY 06/17/23 02/02/24 vitamin B complex 1 cap PO QAM 06/17/23 02/02/24 dapagliflozin propanediol 10 mg 10 mg PO DAILY 02/02/24 02/02/24 tablet (Farxiga) metoprolol succinate 200 mg 200 mg PO DAILY 02/02/24 02/02/24 tablet,extended release 24 hr sacubitril 97 mg-valsartan 103 mg 1 tab PO BID 02/02/24 02/02/24 tablet (Entresto) Previous Rx's ?Medication ?Instructions ?Recorded clotrimazole-betamethasone 1 1 appl topical BID 4 weeks #45 02/11/24 %-0.05 % topical cream grams doxycycline hyclate 100 mg capsule 100 mg PO BID 7 days #14 caps 02/11/24 olopatadine 0.1 % eye drops 1 drp ophthalmic (eye) BID 5 days 09/23/25 #5 mL polymyxin B sulfate 10,000 1 drp ophthalmic (eye) QID 7 days 09/23/25 unit-trimethoprim 1 mg/mL eye drops #10 mL Allergies Allergy/AdvReac Type Severity Reaction Status Date / Time No Known Allergies (No Known Allergy Verified 09/23/25 12:35 Allergies*) Review of Systems Review of Systems: Yes all other systems are reviewed and are negative Constitutional: Constitutional: Reports as per HPI Eyes: Eyes: Denies photophobia PMFSH Past Medical History Attestation statement: The following information was validated with the patient. Source: old records reviewed Medical History Low HDL (under 40) Tobacco abuse disorder Alcohol abuse Class 1 obesity Nonischemic cardiomyopathy Heart failure with reduced ejection fraction Surgical History [place] teeth extracted Social History Social History Household Members: Friend(s) Housing: Apartment Do you presently have visiting nurse or other home services: No Alcohol intake: current Alcohol intake frequency: holidays/special occasions only Patient Tobacco Use Status: Never used Tobacco Substance Use Type: Marijuana Advance Directives: No Advance Directives Information Provided: No Do you have a plan to hurt others: No Plan service: No Physical Exam Vital Signs: Vital Signs: Last Vital Signs Temp 97.8 F 09/23/25 12:32 Pulse 77 09/23/25 12:32 Resp 20 09/23/25 12:32 BP 127/82 09/23/25 12:32 Pulse Ox 94 09/23/25 12:32 O2 Del Method Room Air 09/23/25 12:32 BMI result Body Mass Index 35.8 Const: General: cooperative, healthy appearing and no acute distress Orientation/consciousness: patient oriented x3 Limitations: no limitations HEENT: Head: Yes normal to inspection and Yes atraumatic Ears: hearing grossly normal bilaterally General nose exam: Normal external nose present Face and sinus: Yes normal facial exam Eyes: General: appearance normal, both eyes and all related structures Alignment and Position: alignment normal Conjunctivae: conjunctival abnormal bilateral conjunctival injection diffuse and discharge (& watery) purulent; without subconjunctival hemorrhages Sclerae: sclerae normal Corneas: fluorescein used (No uptake) Pupils: Equal, round and reactive pupils present EOM: EOMs intact bilaterally Direct Ophthalmoscopy: No photophobia Neck: Neck: Yes normal visual inspection and Yes no meningeal signs Resp: Effort & Inspection: normal respiratory effort and no respiratory distress Cardio: Rate: regular rate Skin: Rashes: no rashes Wounds: no wounds Neuro: General: patient oriented x3, tone normal and no meningeal signs Cranial nerves: Yes CN's II-XII intact bilaterally and Yes Equal, round and reactive pupils present Gait exam (Neuro): Normal gait present Extrem: General: Yes normal to inspection Medical Decision Making Medical Decision Making [facility] Narrative: 35-year-old male with no significant past medical history presenting to the ED complaining of bilateral eye erythema, irritation, pruritus, watery & mucus drainage x5 days. On exam vital signs stable, NAD, nontoxic appearing, physical exam as noted above with bilateral conjunctival injection, watery and mucoid drainage. No evidence of preseptal/septal cellulitis. No fluorescein uptake on staining. No abrasion or ulceration. Concern for allergic vs bacterial conjunctivitis Plan: Topical antibiotics and allergen drops Please refer to course for remaining clinical decision making, interpretation of labs/imaging results, and discussions with consultants and/or family members. Differential Diagnosis Differential Diagnoses: The differential diagnosis associated with the presentation includes As above Admission/Observation Consideration of admission/observation: Escalation of care including admission/observation considered Lab Data [facility] Lab Attestation statement: I reviewed the patient's lab results. Labs: Lab Results 09/23/25 Range/Units 13:42 Influenza Type A (PCR) NEGATIVE (Negative) Influenza Type B (PCR) NEGATIVE (Negative) RSV RNA Qual (PCR) NEGATIVE (Negative) SARS-CoV-2 RNA (RT-PCR) NEGATIVE (Negative) Radiology Impression Discussion of test interpretation with radiology: I have reviewed the radiologist's reading. External Record Review External record reviewed: Inpatient record, Office record, Outpatient record, Prior outpatient labs, Prior outpatient radiology, Primary care record and Outside ED record Tests considered The following testing was considered but not selected: As above Prescription Management I considered prescription management with: Pain Medication, Antiviral and Antibiotic Chronic Conditions Patient?s care impacted by: Other Social Determinants Patient?s care significantly limited by Social Determinants of Health including: Other Social Determinant of Health Discharge Plan Discharge Clinical Impression: Conjunctivitis Patient Disposition: Home, Self-Care Instructions: Conjunctivitis (ED) Additional Instructions: Please use eyedrops as prescribed Have close follow up with your primary care doctor If her symptoms persist or worsen, you have difficulty seeing/vision loss or fever return to the ED Prescriptions: New polymyxin B sulf-trimethoprim 10,000 unit- 1 mg/mL drops 1 drp ophthalmic (eye) QID 7 Days Qty: 10 0RF Rx Instructions: while awake; do not exceed 6 doses in 24 hours olopatadine 0.1 % drops 1 drp ophthalmic (eye) BID 5 Days Qty: 5 0RF Rx Instructions: separate doses by at least 6-8 hours No Action metoprolol succinate 200 mg tablet extended release 24 hr 200 mg PO DAILY dapagliflozin propanediol [Farxiga] 10 mg tablet 10 mg PO DAILY Entresto 97-103 mg tablet 1 tab PO BID spironolactone 25 mg tablet 12.5 mg PO DAILY vitamin B complex Capsule 1 cap PO QAM clotrimazole-betamethasone 1-0.05 % cream 1 appl topical BID 28 Days Qty: 45 1RF Rx Instructions: Apply thin coat 2 times per day doxycycline hyclate 100 mg capsule 100 mg PO BID 7 Days Qty: 14 0RF Referrals: Odalis James MD [Primary Care Provider, Internal Medicine] - 5 days Print Language: Pashto
[2025-09-23] MEDS: Fluorescein Sodium STRIP 1 STRIP EYE-BOTH (16:12)
[2025-09-23] MEDS: Tetracaine HCl/PF 0.5% Oph Sol 4 ML DROPS 1 DROP EYE-BOTH (16:12)
[2025-09-23 16:13] VITALS: BP 127/82; PULSE 77; RESP 20; TEMP 36.6; O2SAT 94
== END 2025-09-23 16:13 | disposition home or self-care (01) ==
PROVIDERS: Physician Assistant; Emergency Provider Emergency Medicine; PCP Internal Medicine
DX: H10.9 Unspecified conjunctivitis (principal); Z03.818 Encounter for observation for suspected exposure to other biological agents ruled out
CPT/HCPCS: 87637; 99282; 99283